=== PATIENT | male | born 1945 | race Caucasian/White ===

== ENCOUNTER 2017-10-16 15:13 | Inpatient (IN) ==
[2017-10-16] MEDS ORDERED: Melatonin 3 MG TABLET PO PRN (20:23)
[2017-10-16] MEDS ORDERED: Metoprolol XL (24 HR) Succ 50 MG TAB.ER.24H PO PRN (20:23)
[2017-10-16] MEDS ORDERED: Ipratropium/Albuterol Neb 3 ML IH PRN (20:25)
[2017-10-16] MEDS ORDERED: Naloxone 0.4 MG/ML INJ IVP PRN (20:26)
[2017-10-16] MEDS ORDERED: *HR* Morphine 2 MG/ML SYRINGE IVP PRN ×2 (20:28)
--- NOTE | 2017-10-16 20:41 | Internal Med History&Physical ---
Date of Encounter: 10/16/17 Time of Encounter: 20:39 Assessment and Plan (1) Anemia due to acute blood loss Current visit: No Status: Acute Acute blood loss anemia likely secondary to upper GI bleed, BUN is elevated and the patient showing dark stools in the colostomy bag Transfuse a second unit of blood, monitor CBC, IV fluids, Protonix drip, nothing by mouth Consult surgery Protonix for GI prophylaxis and sequential compression devices for DVT prophylaxis. The patient will be admitted as inpatient, expected to stay [facility] midnights. Full code. Time spent on this admission 40 minutes High risk due to GI bleed (2) Upper GI bleed Current visit: No Status: Acute (3) Cerebral palsy Current visit: Yes Status: Acute Qualifiers: Cerebral palsy type: unspecified type Qualified Code(s): G80.9 - Cerebral palsy, unspecified (4) Colostomy care Current visit: Yes Status: Acute (5) COPD (chronic obstructive pulmonary disease) Current visit: No Status: Chronic May use inhalers/donuts as needed Qualifiers: COPD type: unspecified COPD Qualified Code(s): J44.9 - Chronic obstructive pulmonary disease, unspecified (6) BPH (benign prostatic hyperplasia) Current visit: Yes Status: Acute Continue Flomax, may hold if blood pressure drops Qualifiers: Lower urinary tract symptom detail: unspecified Qualified Code(s): N40.1 - Benign prostatic hyperplasia with lower urinary tract symptoms Internal Medicine - H&P: HPI Chief complaint: Abdominal pain and dark stools Admitted From: Emergency Dept History of present illness: Mr. Gonsalez is a 72 year old male with a past medical history of cerebral palsy, prior small bowel obstruction, colostomy, who was transferred from [facility] as his hemoglobin was found to be 7 from a baseline of 10. Family says the patient has been having really dark stools since yesterday. Potassium is 4.6 BUN 32 that has increased from a baseline of 18. Hemoccult is positive. Patient was given 1 unit of blood at [facility] and was started on a Protonix drip. Was tachycardic with a heart rate of 110. Has also a CT scan that showed a small parastomal hernia with no other acute findings. Patient is alert and oriented in person only, history was taken from family. He appears to be in no acute distress. INR is 1.2, no history of NSAIDs or other blood thinners Past Med Surg Social Fam HX - Past Medical History Medical history: asthma, COPD (Not oxygen dependent), GERD, kidney stones, other (Influenza A, asthma, nephrolithiasis, anxiety, cerebral palsy, small bowel obstruction status post colostomy, BPH, impaired fasting glucose, hypertension) Psychiatric history: anxiety, depression - Past Surgical History Surgical History: cholecystectomy, colostomy - Social History Smoking Status: Never smoker Smokeless Tobacco Status: No Alcohol use: none Drug use: none - Family History Sister Adopted: No Family Member Ethnicity: Non- Living Status: Still Living Hx Family Cardiac Disorders: Yes Hx Family Respiratory Disorders: Yes Hx Family Cancer: No Hx Family GI Disorders: No Hx Family Endocrine Disorder: Yes (DM) Hx Family Neuromuscular Disorders: No Hx Family Neurologic Disorders: No Hx Family HEENT Disorders: No Hx Family Autoimmune Disorders: No - Additional Family History Additional family history: Sister with CABG COPD and diabetes Internal Medicine - H&P: Meds Acetaminophen [Non-Aspirin] 325 mg PO Q6H PRN 08/03/16 [History] Budesonide [Pulmicort] 0.5 mg IH BID PRN 08/03/16 [History] Cyanocobalamin (B-12) [Vitamin B12] 1,000 mcg PO DAILY 08/03/16 [History] Fluticasone Propionate [Flovent Diskus] 50 mcg IH DAILY 08/03/16 [History] HYDROcodone/Acet 5/325 mg [[place] 5-325 mg] 1 tab PO Q6H PRN 08/03/16 [History] HydrOXYzine 10 mg PO TID PRN 08/03/16 [History] Montelukast [Singulair] 10 mg PO DAILY 08/03/16 [History] Nystatin Cream [Mycostatin Cream] 1 appl TP BID PRN 08/03/16 [History] Ondansetron [Zuplenz] 4 mg PO Q8H PRN 08/03/16 [History] Sertraline [Zoloft] 25 mg PO DAILY 08/03/16 [History] Omeprazole [PriLOSEC] 40 mg PO DAILY #14 cap 01/05/17 [Rx] Tamsulosin [Flomax] 0.8 mg PO DAILY #60 capsule 01/05/17 [Rx] Albuterol Sulfate 2.5 mg IH Q4H PRN 09/08/17 [History] Ferrous Sulfate [Iron] 325 mg PO DAILY 09/08/17 [History] Melatonin [Melatin] 3 mg PO HS PRN 09/08/17 [History] Metoprolol XL (24 HR) Succ [Toprol Xl] 25 mg PO DAILY PRN 09/08/17 [History] Multivit-Min/FA/Lycopen/Lutein [Adults 50+ Multivitamin Tablet] 1 each PO DAILY 09/08/17 [History] Ranitidine HCl [Acid Swing Tender] 150 mg PO BID 09/08/17 [History] Albuterol Sulfate [Albuterol Inhaler] 2 puff IH Q4HR PRN 10/16/17 [History] Ondansetron ODT [Zofran ODT] 4 mg SL Q6HR PRN 10/16/17 [History] 3 Allergy/AdvReac Type Severity Reaction Status Date / Time Sulfa (Sulfonamide Allergy Hives Verified 10/16/17 10:38 Antibiotics) All Systems PM: A 10-system review of systems was performed and is negative for pertinent findings except as documented above in the HPI. Review of systems: Unable to be completed due to the patient's mental status - Constitutional Vitals: Pulse Resp BP Pulse Ox 97 16 123/82 95 10/16/17 18:15 10/16/17 18:15 10/16/17 18:15 10/16/17 18:15 General appearance: Present: A&O X 0 - Head Head exam: Present: atraumatic, normocephalic - Eye Eye exam: Present: PERRL, conjuntiva pink, sclera anicteric Pupils: Present: PERRL - Neck Neck exam general surgery: Present: supple, trachea midline. Absent: lymphadenopathy - Respiratory Respiratory exam: Present: decreased breath sounds, CTAB. Absent: accessory muscle use, rales, rhonchi, wheezes - Cardiovascular Cardiovascular exam: Present: RRR, +S1, +S2. Absent: diastolic murmur, gallop, rubs, systolic murmur - GI/Abdominal GI/Abdominal exam: Present: distended (Colostomy bag in place, dark fecal material), normal bowel sounds, soft, no peritoneal signs. Absent: tenderness - Extremities Exam Extremities exam: Present: warm, radial pulses palpable and symmetrical. Absent : calf tenderness, cyanotic, pedal edema - Neurological Exam Neurological exam: Present: CN II-XII intact, no focal deficits. Absent: oriented X3, pronater drift, facial droop, speech deficit - Skin Skin exam: Present: dry, intact Additional comments: Deformed lower extremities
[2017-10-16] MEDS ORDERED: 0.9 % Sodium Chloride 250 ML ONE (23:41)
[2017-10-16] MEDS: 0.9 % Sodium Chloride 1,000 ML IVC SCH (23:44)
[2017-10-17] MEDS: Pantoprazole 80 MG in 0.9 % Sodium Chloride 250 ML IVC SCH ×3 (00:36→21:40)
[2017-10-17 05:43] LABS: Hematocrit 28.1 % (37.5-50.1); Hemoglobin 8.9 g/dL (12.9-16.9); Mean Corpuscular HGB Conc 31.7 g/dL (31.6-35.5); Mean Corpuscular Hemoglobin 27.6 pg (28.0-33.3); Mean Corpuscular Volume 87.3 fL (83.0-100.0); Mean Platelet Volume 9.5 fL (9.4-12.4); Platelet Count 185 K/mcL (140-400); Red Blood Count 3.22 M/mcL (4.19-5.50); Red Cell Distribution Width 14.9 % (11.5-14.5)
[2017-10-17 05:47] LABS: BUN/Creatinine Ratio 41 (6-26); Blood Urea Nitrogen 28 mg/dL (8-23); Calcium 8.2 mg/dL (8.6-10.3); Carbon Dioxide 21 mEq/L (23-29); Chloride 116 mEq/L (98-107); Glucose 77 mg/dL (70-105); Magnesium 1.9 mg/dL (1.6-2.6); Osmolality,Calculated 298 (280-300); Potassium 3.9 mEq/L (3.5-5.1); Sodium 142 mEq/L (136-145); eGFR For African Americans > 60 (> 60); eGFR For Non-African Americans > 60 (> 60)
[2017-10-17] MEDS: 0.9 % Sodium Chloride 1,000 ML IVC SCH ×2 (10:58→21:39)
[2017-10-17] MEDS: Ondansetron 4 MG/2 ML VIAL IVP PRN (13:36)
--- NOTE | 2017-10-17 15:55 | Internal Med Progress Note ---
Date of Encounter: 10/17/17 Time of Encounter: 15:10 - Assessment and plan (1) Anemia due to blood loss, acute Current Visit: Yes Status: Acute Assessment and plan: s/p 2 unit PRBC transfusion Repeat H&H within acceptable range continue protonix gtt surgery evaluation requested (2) Upper GI bleed Current Visit: Yes Status: Acute Assessment and plan: as listed above (3) BPH (benign prostatic hyperplasia) Current Visit: Yes Status: Chronic Assessment and plan: continue Tamsulosin Qualifiers: Lower urinary tract symptom detail: unspecified Qualified Code(s): N40.1 - Benign prostatic hyperplasia with lower urinary tract symptoms (4) Cerebral palsy Current Visit: Yes Status: Chronic Qualifiers: Cerebral palsy type: unspecified type Qualified Code(s): G80.9 - Cerebral palsy, unspecified (5) Colostomy care Current Visit: Yes Status: Chronic (6) DVT prophylaxis Current Visit: Yes Status: Acute Assessment and plan: SCD (7) Hypertension Current Visit: Yes Status: Chronic Assessment and plan: started home medications will closely monitor BP Qualifiers: Hypertension type: essential hypertension Qualified Code(s): I10 - Essential (primary) hypertension - Subjective Interval history: Patient seen and examined with family present at bedside. Pt resting in bed and denies any discomfort. As per family present at bedside, pt is AAO x 0 at baseline but communicates well. His clinical condition is improved from previous day. S/P 2units PRBC transfusion(first unit given at [facility], second unit upon arrival to [facility]) Repeat H&H within acceptable range Surgery evaluation requested for possible EGD - Constitutional Vitals: Temp Pulse Resp BP Pulse Ox 98.2 F 119 16 139/81 94 10/17/17 12:02 10/17/17 12:02 10/17/17 12:02 10/17/17 12:02 10/17/17 12:02 General appearance: Present: A&O X 0, no acute distress - Head Head exam: Present: atraumatic, normocephalic - Eye Eye exam: Present: conjuntiva pink, sclera anicteric - Respiratory Respiratory exam: Absent: respiratory distress, wheezes - Cardiovascular Cardiovascular exam: Present: +S1, +S2, tachycardia - GI/Abdominal GI/Abdominal exam: Present: normal bowel sounds, soft, no peritoneal signs. Absent: distended, tenderness Additional comments: Colostomy bag in place, dark fecal material - Extremities Exam Extremities exam: Present: warm, radial pulses palpable and symmetrical. Absent : pedal edema (contracted b/l LE) Internal Medicine: Result - Labs CBC & Chem 7: 10/17/17 04:55 10/17/17 04:55 Labs: Short CBC 10/17/17 Range/Units 04:55 WBC 4.4 (4.3-11.1) K/mcL Hgb 8.9 L D (12.9-16.9) g/dL Hct 28.1 L (37.5-50.1) % Plt Count 185 (140-400) K/mcL BMP 10/17/17 04:55 Sodium 142 Potassium 3.9 Chloride 116 H Carbon Dioxide 21 L BUN 28 H Creatinine 0.69 L Glucose 77 Calcium 8.2 L Consult Discharge Plan - Plan Referrals: NONE,PCP [Primary Care Provider] -
--- NOTE | 2017-10-17 16:31 | General Surgery Consult Note ---
<Beatriz Haque - Last Filed: 10/17/17 16:18> Date of Encounter: 10/17/17 Time of Encounter: 08:15 Assessment and Plan (1) Anemia due to blood loss, acute Current Visit: Yes Status: Acute 2 days dark stool in colostomy bag. Transferred from [facility] due to hemoglobin 7 Concern for G.I. bleed 2 units of PRBC given Hgb 8.9 BUN/Cr 41 WBC WNL afebrile, stable EGD/colonoscopy tomorrow Bowel prep ordered. If patient is not tolerate oral bowel prep then it will have to be given through nasogastric tube NPO monitor for hemorrhaging (2) Upper GI bleed Current Visit: Yes Status: Acute endoscopy tomorrow (3) Colostomy care Current Visit: Yes Status: Chronic dark stool in colostomy bag (4) Cerebral palsy Current Visit: Yes Status: Chronic Qualifiers: Cerebral palsy type: unspecified type Qualified Code(s): G80.9 - Cerebral palsy, unspecified History of Present Illness Consult date: 10/17/17 Reason for consult: other (GI bleed) History of present illness: Mr. Gonsalez is a 72yo male with a past medical history of cerebral palsy, prior small bowel obstruction, and colostomy bag placed and part of colon resected in 1988. He was transferred from [facility] due to a hemoglobin of 7 (baseline 10). Family is alongside the patient upon exam. Family stated that the patient started to have dark stools and has colostomy bag [address] abd/pelvis showed small peristomal hernia without obstruction and no acute process in the abdomen and pelvis. [facility] gave the patient 1 unit of blood and he was started on a protonix drip and was transferred here. He has not been on blood thinners or NSAIDS. Past Med Surg Social Fam HX - Past Medical History Medical history: asthma, COPD (Not oxygen dependent), GERD, kidney stones, other (Influenza A, asthma, nephrolithiasis, anxiety, cerebral palsy, small bowel obstruction status post colostomy, BPH, impaired fasting glucose, hypertension) Psychiatric history: anxiety, depression - Past Surgical History Surgical History: cholecystectomy, colostomy - Social History Smoking Status: Never smoker Smokeless Tobacco Status: No Alcohol use: none Drug use: none - Family History Sister Adopted: No Family Member Ethnicity: Non- Living Status: Still Living Hx Family Cardiac Disorders: Yes Hx Family Respiratory Disorders: Yes Hx Family Cancer: No Hx Family GI Disorders: No Hx Family Endocrine Disorder: Yes (DM) Hx Family Neuromuscular Disorders: No Hx Family Neurologic Disorders: No Hx Family HEENT Disorders: No Hx Family Autoimmune Disorders: No Medications and Allergies Acetaminophen [Non-Aspirin] 325 mg PO Q6H PRN 08/03/16 [History] Budesonide [Pulmicort] 0.5 mg IH BID PRN 08/03/16 [History] Cyanocobalamin (B-12) [Vitamin B12] 1,000 mcg PO DAILY 08/03/16 [History] Fluticasone Propionate [Flovent Diskus] 50 mcg IH DAILY 08/03/16 [History] HYDROcodone/Acet 5/325 mg [[place] 5-325 mg] 1 tab PO Q6H PRN 08/03/16 [History] HydrOXYzine 10 mg PO TID PRN 08/03/16 [History] Montelukast [Singulair] 10 mg PO DAILY 08/03/16 [History] Nystatin Cream [Mycostatin Cream] 1 appl TP BID PRN 08/03/16 [History] Ondansetron [Zuplenz] 4 mg PO Q8H PRN 08/03/16 [History] Sertraline [Zoloft] 25 mg PO DAILY 08/03/16 [History] Omeprazole [PriLOSEC] 40 mg PO DAILY #14 cap 01/05/17 [Rx] Tamsulosin [Flomax] 0.8 mg PO DAILY #60 capsule 01/05/17 [Rx] Albuterol Sulfate 2.5 mg IH Q4H PRN 09/08/17 [History] Ferrous Sulfate [Iron] 325 mg PO DAILY 09/08/17 [History] Melatonin [Melatin] 3 mg PO HS PRN 09/08/17 [History] Metoprolol XL (24 HR) Succ [Toprol Xl] 25 mg PO DAILY PRN 09/08/17 [History] Multivit-Min/FA/Lycopen/Lutein [Adults 50+ Multivitamin Tablet] 1 each PO DAILY 09/08/17 [History] Ranitidine HCl [Acid Wind Technician] 150 mg PO BID 09/08/17 [History] Albuterol Sulfate [Albuterol Inhaler] 2 puff IH Q4HR PRN 10/16/17 [History] Ondansetron ODT [Zofran ODT] 4 mg SL Q6HR PRN 10/16/17 [History] 3 Allergy/AdvReac Type Severity Reaction Status Date / Time Sulfa (Sulfonamide Allergy Hives Verified 10/16/17 10:38 Antibiotics) Review of Systems ROS unobtainable: other (the patient was unable to communicate ROS due to cerebral palsy) All systems PM: A 10-system review of systems was performed and is negative for pertinent findings except as documented above in the HPI. General Surgery Exam Initial Vital Signs Pulse Resp BP Pulse Ox 97 16 123/82 95 10/16/17 18:15 10/16/17 18:15 10/16/17 18:15 10/16/17 18:15 - General physical appearance well developed, well nourished, no distress - Eyes normal ocular movement. negative: icteric - Respiratory normal expansion, clear to percussion - Cardiovascular Cardiovascular exam: Present: RRR - Abdomen Abdomen general surgery: Present: bowel sounds present, soft, non tender Exam Initial Vital Signs Pulse Resp BP Pulse Ox 97 16 123/82 95 10/16/17 18:15 10/16/17 18:15 10/16/17 18:15 10/16/17 18:15 Results - Labs 10/17/17 04:55 10/17/17 04:55 Abnormal lab results RBC 3.22 M/mcL (4.19-5.50) L 10/17/17 04:55 Hgb 8.9 g/dL (12.9-16.9) L D 10/17/17 04:55 Hct 28.1 % (37.5-50.1) L 10/17/17 04:55 MCH 27.6 pg (28.0-33.3) L 10/17/17 04:55 RDW 14.9 % (11.5-14.5) H 10/17/17 04:55 Chloride 116 mEq/L (98-107) H 10/17/17 04:55 Carbon Dioxide 21 mEq/L (23-29) L 10/17/17 04:55 BUN 28 mg/dL (8-23) H 10/17/17 04:55 Creatinine 0.69 mg/dL (0.70-1.30) L 10/17/17 04:55 BUN/Creatinine Ratio 41 (6-26) H 10/17/17 04:55 Calcium 8.2 mg/dL (8.6-10.3) L 10/17/17 04:55 Diabetes panel 10/17/17 Range/Units 04:55 Sodium 142 (136-145) mEq/L Potassium 3.9 (3.5-5.1) mEq/L Chloride 116 H (98-107) mEq/L Carbon Dioxide 21 L (23-29) mEq/L BUN 28 H (8-23) mg/dL Creatinine 0.69 L (0.70-1.30) mg/dL Glucose 77 (70-105) mg/dL Calcium 8.2 L (8.6-10.3) mg/dL Calcium panel 10/17/17 Range/Units 04:55 Calcium 8.2 L (8.6-10.3) mg/dL Pituitary panel 10/17/17 Range/Units 04:55 Sodium 142 (136-145) mEq/L Potassium 3.9 (3.5-5.1) mEq/L Chloride 116 H (98-107) mEq/L Carbon Dioxide 21 L (23-29) mEq/L BUN 28 H (8-23) mg/dL Creatinine 0.69 L (0.70-1.30) mg/dL Glucose 77 (70-105) mg/dL Calcium 8.2 L (8.6-10.3) mg/dL Adrenal panel 10/17/17 Range/Units 04:55 Sodium 142 (136-145) mEq/L Potassium 3.9 (3.5-5.1) mEq/L Chloride 116 H (98-107) mEq/L Carbon Dioxide 21 L (23-29) mEq/L BUN 28 H (8-23) mg/dL Creatinine 0.69 L (0.70-1.30) mg/dL Glucose 77 (70-105) mg/dL Calcium 8.2 L (8.6-10.3) mg/dL All other labs normal. Consult Discharge Plan - Plan Referrals: NONE,PCP [Primary Care Provider] - <Taye Markham - Last Filed: 10/17/17 18:05> Date of Encounter: 10/17/17 Review of Systems All systems PM: A 10-system review of systems was performed and is negative for pertinent findings except as documented above in the HPI. General Surgery Exam Initial Vital Signs Pulse Resp BP Pulse Ox 97 16 123/82 95 10/16/17 18:15 10/16/17 18:15 10/16/17 18:15 10/16/17 18:15 Exam Initial Vital Signs Pulse Resp BP Pulse Ox 97 16 123/82 95 10/16/17 18:15 10/16/17 18:15 10/16/17 18:15 10/16/17 18:15 Results - Labs 10/17/17 04:55 10/17/17 04:55 Abnormal lab results RBC 3.22 M/mcL (4.19-5.50) L 10/17/17 04:55 Hgb 8.9 g/dL (12.9-16.9) L D 10/17/17 04:55 Hct 28.1 % (37.5-50.1) L 10/17/17 04:55 MCH 27.6 pg (28.0-33.3) L 10/17/17 04:55 RDW 14.9 % (11.5-14.5) H 10/17/17 04:55 Chloride 116 mEq/L (98-107) H 10/17/17 04:55 Carbon Dioxide 21 mEq/L (23-29) L 10/17/17 04:55 BUN 28 mg/dL (8-23) H 10/17/17 04:55 Creatinine 0.69 mg/dL (0.70-1.30) L 10/17/17 04:55 BUN/Creatinine Ratio 41 (6-26) H 10/17/17 04:55 Calcium 8.2 mg/dL (8.6-10.3) L 10/17/17 04:55 Diabetes panel 10/17/17 Range/Units 04:55 Sodium 142 (136-145) mEq/L Potassium 3.9 (3.5-5.1) mEq/L Chloride 116 H (98-107) mEq/L Carbon Dioxide 21 L (23-29) mEq/L BUN 28 H (8-23) mg/dL Creatinine 0.69 L (0.70-1.30) mg/dL Glucose 77 (70-105) mg/dL Calcium 8.2 L (8.6-10.3) mg/dL Calcium panel 01/07/18 Range/Units 04:55 Calcium 8.2 L (8.6-10.3) mg/dL Pituitary panel 10/17/17 Range/Units 04:55 Sodium 142 (136-145) mEq/L Potassium 3.9 (3.5-5.1) mEq/L Chloride 116 H (98-107) mEq/L Carbon Dioxide 21 L (23-29) mEq/L BUN 28 H (8-23) mg/dL Creatinine 0.69 L (0.70-1.30) mg/dL Glucose 77 (70-105) mg/dL Calcium 8.2 L (8.6-10.3) mg/dL Adrenal panel 10/17/17 Range/Units 04:55 Sodium 142 (136-145) mEq/L Potassium 3.9 (3.5-5.1) mEq/L Chloride 116 H (98-107) mEq/L Carbon Dioxide 21 L (23-29) mEq/L BUN 28 H (8-23) mg/dL Creatinine 0.69 L (0.70-1.30) mg/dL Glucose 77 (70-105) mg/dL Calcium 8.2 L (8.6-10.3) mg/dL All other labs normal. - Attending Attestation I examined this patient and my medical decision-making was reviewed with the Resident Physician. I agree with the documented findings, disposition and treatment plan as described except to the extent set forth below. The patient is seen and evaluated on morning rounds with the resident. He appears to have anemia with guaiac positive stool. The family members also report darkening of his colostomy output. He did have colon resection in the remote past of unknown type. His colostomy is on the right side of the abdomen. He has multiple entry midline incision healed by secondary intention. We will plan EGD and colonoscopy with the assistance of Mac anesthesia tomorrow. Proceed with bowel prep. Taye Markham MD FACS
[2017-10-17] MEDS ORDERED: Polyethylene Glycol 3350 255 GM POWDER PO ONE (17:00)
[2017-10-17] MEDS: Metoprolol XL (24 HR) Succ 50 MG TAB.ER.24H PO SCH (17:21)
[2017-10-18] MEDS: Ondansetron 4 MG/2 ML VIAL IVP PRN ×3 (02:02→21:09)
[2017-10-18 03:36] LABS: Basophils % 0.4 %; Eosinophils # 0.1 K/mcL (0.0-0.6); Eosinophils % 2.5 %; Hematocrit 24.5 % (37.5-50.1); Hemoglobin 7.9 g/dL (12.9-16.9); Immature Granulocytes % 0.6 % (0-4); Immature Platelets 1.6 % (1.1-6.1); Lymphocytes # 1.2 K/mcL (0.6-4.6); Lymphocytes % 24.2 %; Mean Corpuscular HGB Conc 32.2 g/dL (31.6-35.5); Mean Corpuscular Hemoglobin 27.6 pg (28.0-33.3); Mean Corpuscular Volume 85.7 fL (83.0-100.0); Mean Platelet Volume 9.3 fL (9.4-12.4); Monocytes # 0.3 K/mcL (0.0-1.3); Monocytes % 6.3 %; Neutrophils # 3.1 K/mcL (1.6-8.9); Nucleated Red Blood Cells 0.4 /100 WBC (0); Platelet Count 210 K/mcL (140-400); Red Blood Count 2.86 M/mcL (4.19-5.50); Red Cell Distribution Width 15.1 % (11.5-14.5)
[2017-10-18 03:57] LABS: BUN/Creatinine Ratio 21 (6-26); Blood Urea Nitrogen 13 mg/dL (8-23); Calcium 8.1 mg/dL (8.6-10.3); Carbon Dioxide 21 mEq/L (23-29); Chloride 116 mEq/L (98-107); Glucose 88 mg/dL (70-105); Magnesium 1.7 mg/dL (1.6-2.6); Osmolality,Calculated 292 (280-300); Phosphorous 2.6 mg/dL (2.7-4.5); Potassium 3.5 mEq/L (3.5-5.1); Sodium 141 mEq/L (136-145); eGFR For African Americans > 60 (> 60); eGFR For Non-African Americans > 60 (> 60)
[2017-10-18] MEDS: 0.9 % Sodium Chloride 1,000 ML IVC SCH ×2 (07:46→21:10)
[2017-10-18] MEDS: Pantoprazole 80 MG in 0.9 % Sodium Chloride 250 ML IVC SCH (07:46)
[2017-10-18] MEDS: Metoprolol XL (24 HR) Succ 50 MG TAB.ER.24H PO SCH (07:47)
--- NOTE | 2017-10-18 08:13 | General Surgery Progress Note ---
<Beatriz Haque - Last Filed: 10/18/17 08:09> Date of Encounter: 10/18/17 Time of Encounter: 06:50 - Assessment and Plan (1) Anemia due to blood loss, acute Current Visit: Yes Status: Acute 2 days dark stool in colostomy bag. Transferred from [facility] due to hemoglobin 7 Concern for G.I. bleed 2 units of PRBC given Hgb 7.9 BUN/Cr 21 WBC WNL afebrile, blood pressure stable Successful bowel prep last night EGD/colonoscopy today by Dr. Markham NPO monitor for hemorrhaging (2) Upper GI bleed Current Visit: Yes Status: Acute Endoscopy scheduled for today (3) Colostomy care Current Visit: Yes Status: Chronic Has a colostomy bag on right side of abdomen. Bag was clear on inspection post bowel prep (4) Cerebral palsy Current Visit: Yes Status: Chronic Has cerebral palsy Qualifiers: Cerebral palsy type: unspecified type Qualified Code(s): G80.9 - Cerebral palsy, unspecified Subjective Patient reports: no new complaints, afebrile Narrative: The patient's family and nursing reported that the patient tolerated the bowel prep but did not have to consume full amount since he had clear stools prior to finishing. The patient has no other complaints. Family was pleased that the patient is going to proceed with the endoscopy today. There were no other events over night according to his nurse. Objective Vital Signs - Last 8 Hours Temp Pulse Resp BP Pulse Ox 10/18/17 07:00 100 16 100/69 97 10/18/17 05:20 98.1 F 103 20 121/83 96 Intake and Output 10/17/17 10/18/17 10/18/17 23:59 07:59 15:59 Intake Total 1250 / 1250 1250 / 1250 Output Total 300 / 300 500 / 500 Balance 950 / 950 750 / 750 Intake: IV Fluids 1250 / 1250 1250 / 1250 0.9 % Sodium Chloride 1,000 ML 1000 / 1000 1000 / 1000 @ 100 mls/hr IVC .Q10H [facility] Rx#: [id number] Protonix 80 MG In 0.9 % Sodium 250 / 250 250 / 250 Chloride 250 ML @ 25 mls/hr IVC .Q10H [facility] Rx#:[id number] Oral 0 / 0 0 / 0 Output: Stool 300 / 300 500 / 500 Other: Stool Size Moderate Moderate Stool Consistency liquid liquid Stool Color Green Yellow # Voids 1 0 # Urine Diapers 1 Weight 66.5 kg Patient Weight 10/18/17 23:59 Weight 66.5 kg - General physical appearance well developed, well nourished, no distress - ENT normal nares - Respiratory normal expansion, normal respiratory effort, clear to auscultation - Cardiovascular Cardiovascular exam: Present: RRR - Abdomen Abdomen: Present: bowel sounds present, soft, non tender - Labs 10/18/17 02:35 10/18/17 02:35 Diabetes panel 10/18/17 Range/Units 02:35 Sodium 141 (136-145) mEq/L Potassium 3.5 (3.5-5.1) mEq/L Chloride 116 H (98-107) mEq/L Carbon Dioxide 21 L (23-29) mEq/L BUN 13 (8-23) mg/dL Creatinine 0.63 L (0.70-1.30) mg/dL Glucose 88 (70-105) mg/dL Calcium 8.1 L (8.6-10.3) mg/dL Calcium panel 10/18/17 Range/Units 02:35 Calcium 8.1 L (8.6-10.3) mg/dL Phosphorus 2.6 L (2.7-4.5) mg/dL Pituitary panel 10/18/17 Range/Units 02:35 Sodium 141 (136-145) mEq/L Potassium 3.5 (3.5-5.1) mEq/L Chloride 116 H (98-107) mEq/L Carbon Dioxide 21 L (23-29) mEq/L BUN 13 (8-23) mg/dL Creatinine 0.63 L (0.70-1.30) mg/dL Glucose 88 (70-105) mg/dL Calcium 8.1 L (8.6-10.3) mg/dL Adrenal panel 10/18/17 Range/Units 02:35 Sodium 141 (136-145) mEq/L Potassium 3.5 (3.5-5.1) mEq/L Chloride 116 H (98-107) mEq/L Carbon Dioxide 21 L (23-29) mEq/L BUN 13 (8-23) mg/dL Creatinine 0.63 L (0.70-1.30) mg/dL Glucose 88 (70-105) mg/dL Calcium 8.1 L (8.6-10.3) mg/dL Consult Discharge Plan - Plan Referrals: NONE,PCP [Primary Care Provider] - <ShahrzadTaye Arias - Last Filed: 10/19/17 08:50> Date of Encounter: 10/19/17 Objective Vital Signs - Last 8 Hours Temp Pulse Resp BP Pulse Ox 10/19/17 07:00 80 14 124/79 97 10/19/17 05:55 98.1 F 102 16 124/79 96 Intake and Output 10/18/17 10/19/17 10/19/17 23:59 07:59 15:59 Intake Total 1000 / 1000 1000 / 1000 Output Total 400 / 400 400 / 400 Balance 600 / 600 600 / 600 Intake: IV Fluids 1000 / 1000 1000 / 1000 0.9 % Sodium Chloride 1,000 ML 1000 / 1000 1000 / 1000 @ 100 mls/hr IVC .Q10H [facility] Rx#: [id number] Oral 0 / 0 0 / 0 Output: Stool 400 / 400 400 / 400 Other: Stool Size Large Stool Consistency liquid formed Stool Color Black # Voids 1 0 # Urine Diapers 1 1 Weight 65.5 kg Patient Weight 10/19/17 23:59 Weight 65.5 kg - Labs 10/19/17 03:53 10/19/17 03:53 Diabetes panel 10/19/17 Range/Units 03:53 Sodium 143 (136-145) mEq/L Potassium 3.4 L (3.5-5.1) mEq/L Chloride 119 H (98-107) mEq/L Carbon Dioxide 21 L (23-29) mEq/L BUN 16 (8-23) mg/dL Creatinine 0.57 L (0.70-1.30) mg/dL Glucose 88 (70-105) mg/dL Calcium 7.9 L (8.6-10.3) mg/dL Calcium panel 10/19/17 Range/Units 03:53 Calcium 7.9 L (8.6-10.3) mg/dL Phosphorus 2.6 L (2.7-4.5) mg/dL Pituitary panel 10/19/17 Range/Units 03:53 Sodium 143 (136-145) mEq/L Potassium 3.4 L (3.5-5.1) mEq/L Chloride 119 H (98-107) mEq/L Carbon Dioxide 21 L (23-29) mEq/L BUN 16 (8-23) mg/dL Creatinine 0.57 L (0.70-1.30) mg/dL Glucose 88 (70-105) mg/dL Calcium 7.9 L (8.6-10.3) mg/dL Adrenal panel 10/19/17 Range/Units 03:53 Sodium 143 (136-145) mEq/L Potassium 3.4 L (3.5-5.1) mEq/L Chloride 119 H (98-107) mEq/L Carbon Dioxide 21 L (23-29) mEq/L BUN 16 (8-23) mg/dL Creatinine 0.57 L (0.70-1.30) mg/dL Glucose 88 (70-105) mg/dL Calcium 7.9 L (8.6-10.3) mg/dL - Attending Attestation I examined this patient and my medical decision-making was reviewed with the Resident Physician. I agree with the documented findings, disposition and treatment plan as described except to the extent set forth below. The patient is seen and evaluated with the resident. The patient has evidence of GI bleed. We will plan EGD and endoscopy through the ostomy to try and identify bleeding source. We will proceed later today. Taye Markham MD FACS
[2017-10-18] MEDS ORDERED: Lidocaine -MPF 2% 2 ML VIAL ONE (08:35)
[2017-10-18] MEDS ORDERED: Propofol 500 MG/50 ML INFUS..BTL ONE (08:35)
--- NOTE | 2017-10-18 08:49 | Anesthesia Evaluation PreOp ---
Date of Encounter: 10/18/17 Time of Encounter: 08:49 - Past History Planned Operation: endoscopy, GI bleed recieved 2 units packed cells Cardiac History: HTN Pulmonary History: Asthma, COPD MENT[employer] HE[employer] PROFESSIONAL History: Other (CP, anxiety depression) Other Medical History: Renal (kidney stones,), Other (colostomy d/t small bowel obstruction, BPH, insomnia,) Alcohol Use: none Drug use: none Medications and Allergies Acetaminophen [Non-Aspirin] 325 mg PO Q6H PRN 08/03/16 [History] Budesonide [Pulmicort] 0.5 mg IH BID PRN 08/03/16 [History] Cyanocobalamin (B-12) [Vitamin B12] 1,000 mcg PO DAILY 08/03/16 [History] Fluticasone Propionate [Flovent Diskus] 50 mcg IH DAILY 08/03/16 [History] HYDROcodone/Acet 5/325 mg [[place] 5-325 mg] 1 tab PO Q6H PRN 08/03/16 [History] HydrOXYzine 10 mg PO TID PRN 08/03/16 [History] Montelukast [Singulair] 10 mg PO DAILY 08/03/16 [History] Nystatin Cream [Mycostatin Cream] 1 appl TP BID PRN 08/03/16 [History] Ondansetron [Zuplenz] 4 mg PO Q8H PRN 08/03/16 [History] Sertraline [Zoloft] 25 mg PO DAILY 08/03/16 [History] Omeprazole [PriLOSEC] 40 mg PO DAILY #14 cap 01/05/17 [Rx] Tamsulosin [Flomax] 0.8 mg PO DAILY #60 capsule 01/05/17 [Rx] Albuterol Sulfate 2.5 mg IH Q4H PRN 09/08/17 [History] Ferrous Sulfate [Iron] 325 mg PO DAILY 09/08/17 [History] Melatonin [Melatin] 3 mg PO HS PRN 09/08/17 [History] Metoprolol XL (24 HR) Succ [Toprol Xl] 25 mg PO DAILY PRN 09/08/17 [History] Multivit-Min/FA/Lycopen/Lutein [Adults 50+ Multivitamin Tablet] 1 each PO DAILY 09/08/17 [History] Ranitidine HCl [Acid Sports Reporter] 150 mg PO BID 09/08/17 [History] Albuterol Sulfate [Albuterol Inhaler] 2 puff IH Q4HR PRN 10/16/17 [History] Ondansetron ODT [Zofran ODT] 4 mg SL Q6HR PRN 10/16/17 [History] 3 Allergy/AdvReac Type Severity Reaction Status Date / Time Sulfa (Sulfonamide Allergy Hives Verified 10/16/17 10:38 Antibiotics) Anesthesia Results - Labs 10/18/17 02:35 10/18/17 02:35 Anesthesia Exam - HEENT Pupil (Motor): Pupils equal Mallampati: III Teeth: Missing, Poor dentition Oral Opening: Greater than 3 - Cardiac Rhythm: Regular Murmur: None - Pulmonary Breath Sounds: bilateral Rhonchi (scattered) Respiratory Effort: Symmetrical Anesthesia Assess/Plan ASA Score: 3 Modified Cody Scale for Level of Consciousness: Cooperative, oriented, and tranquil Anesthetic Plan: MAC Monitoring Plan: Standard Monitors
[2017-10-18] MEDS ORDERED: Metoprolol XL (24 HR) Succ 50 MG TAB.ER.24H PO SCH (09:00)
[2017-10-18] MEDS ORDERED: Tetracaine/Benzocaine/Butamben 200MG/SPRAY (100SPY/BOT) MM ONE (09:23)
[2017-10-18] MEDS ORDERED: Simethicone 40 MG/0.6 ML MLS IR ONE (09:23)
--- NOTE | 2017-10-18 12:28 | Internal Med Progress Note ---
Date of Encounter: 10/18/17 Time of Encounter: 12:27 - Assessment and plan (1) Anemia due to blood loss, acute Current Visit: Yes Status: Acute Assessment and plan: s/p 2 unit PRBC transfusio on 10/17/17 continue protonix gtt until EGD/Colonoscopy surgery evaluation appreciated (2) Upper GI bleed Current Visit: Yes Status: Acute Assessment and plan: as listed above (3) BPH (benign prostatic hyperplasia) Current Visit: Yes Status: Chronic Assessment and plan: continue Tamsulosin Qualifiers: Lower urinary tract symptom presence: unspecified whether lower urinary tract symptoms present Qualified Code(s): N40.0 - Benign prostatic hyperplasia without lower urinary tract symptoms (4) Cerebral palsy Current Visit: Yes Status: Chronic Qualifiers: Cerebral palsy type: unspecified type Qualified Code(s): G80.9 - Cerebral palsy, unspecified (5) Colostomy care Current Visit: Yes Status: Chronic (6) DVT prophylaxis Current Visit: Yes Status: Acute Assessment and plan: SCD (7) Hypertension Current Visit: Yes Status: Chronic Assessment and plan: BP within acceptable range conitnue home medications will closely monitor BP Qualifiers: Hypertension type: essential hypertension Qualified Code(s): I10 - Essential (primary) hypertension - Subjective Interval history: Patient seen and examined at bedside. Pt resting in bed and denies any discomfort. As per family present at bedside, pt is AAO x 0 at baseline but communicates well. His clinical condition is improved from previous day. S/P 2units PRBC transfusion(first unit given at [facility], second unit upon arrival to [facility]) Surgery evaluation appreciated, tentative EGD today - Constitutional Vitals: Temp Pulse Resp BP Pulse Ox 99.2 F 103 20 139/80 98 10/18/17 08:52 10/18/17 08:52 10/18/17 08:52 10/18/17 08:52 10/18/17 08:52 General appearance: Present: A&O X 0, no acute distress - Head Head exam: Present: atraumatic, normocephalic - Eye Eye exam: Present: conjuntiva pink, sclera anicteric - Respiratory Respiratory exam: Present: CTAB. Absent: respiratory distress, wheezes - Cardiovascular Cardiovascular exam: Present: +S1, +S2, tachycardia. Absent: diastolic murmur, gallop, rubs, systolic murmur - GI/Abdominal GI/Abdominal exam: Present: normal bowel sounds, soft, no peritoneal signs. Absent: distended, tenderness - Extremities Exam Extremities exam: Present: warm, radial pulses palpable and symmetrical. Absent : calf tenderness Internal Medicine: Result - Labs CBC & Chem 7: 10/18/17 02:35 10/18/17 02:35 Labs: Short CBC 10/18/17 Range/Units 02:35 WBC 4.8 (4.3-11.1) K/mcL Hgb 7.9 L (12.9-16.9) g/dL Hct 24.5 L (37.5-50.1) % Plt Count 210 (140-400) K/mcL Neutrophils # 3.1 (1.6-8.9) K/mcL BMP 10/18/17 02:35 Sodium 141 Potassium 3.5 Chloride 116 H Carbon Dioxide 21 L BUN 13 Creatinine 0.63 L Glucose 88 Calcium 8.1 L Consult Discharge Plan - Plan Referrals: NONE,PCP [Primary Care Provider] -
[2017-10-18] MEDS: Acetaminophen 325 MG TABLET PO PRN (21:09)
[2017-10-19 04:34] LABS: Hematocrit 20.7 % (37.5-50.1); Hemoglobin 6.6 g/dL (12.9-16.9); Immature Granulocytes % 0.3 % (0-4); Lymphocytes % 28.8 %; Mean Corpuscular HGB Conc 31.9 g/dL (31.6-35.5); Mean Corpuscular Hemoglobin 27.4 pg (28.0-33.3); Mean Corpuscular Volume 85.9 fL (83.0-100.0); Mean Platelet Volume 9.4 fL (9.4-12.4); Monocytes % 6.9 %; Platelet Count 179 K/mcL (140-400); Red Blood Count 2.41 M/mcL (4.19-5.50); Red Cell Distribution Width 15.2 % (11.5-14.5); Segmented Neutrophils % 59.3 %
[2017-10-19 04:35] LABS: Basophils % 0.5 %; Eosinophils # 0.2 K/mcL (0.0-0.6); Eosinophils % 4.2 %; Lymphocytes # 1.1 K/mcL (0.6-4.6); Monocytes # 0.3 K/mcL (0.0-1.3); Neutrophils # 2.2 K/mcL (1.6-8.9)
[2017-10-19 04:52] LABS: BUN/Creatinine Ratio 28 (6-26); Blood Urea Nitrogen 16 mg/dL (8-23); Calcium 7.9 mg/dL (8.6-10.3); Carbon Dioxide 21 mEq/L (23-29); Chloride 119 mEq/L (98-107); Glucose 88 mg/dL (70-105); Magnesium 1.8 mg/dL (1.6-2.6); Osmolality,Calculated 297 (280-300); Phosphorous 2.6 mg/dL (2.7-4.5); Potassium 3.4 mEq/L (3.5-5.1); Sodium 143 mEq/L (136-145); eGFR For African Americans > 60 (> 60); eGFR For Non-African Americans > 60 (> 60)
[2017-10-19] MEDS: Metoprolol XL (24 HR) Succ 50 MG TAB.ER.24H PO SCH (07:37)
[2017-10-19] MEDS: 0.9 % Sodium Chloride 1,000 ML IVC SCH (07:39)
[2017-10-19] MEDS ORDERED: 0.9 % Sodium Chloride 250 ML ONE ×3 (08:42→14:09)
--- NOTE | 2017-10-19 09:31 | General Surgery Progress Note ---
<Figueroa Quiroz - Last Filed: 10/19/17 09:28> Date of Encounter: 10/19/17 Time of Encounter: 09:28 - Assessment and Plan (1) Anemia due to blood loss, acute Status: Acute Continues to have dark bloody stools in colostomy, day 3. Transferred from [facility] due to hemoglobin 7. No active bleed visualized on EGD. - hgb this AM 6.6, ordered 3 units of prbc - closely monitor vitals, H&H. - tachycardic this AM, ordered EKG - NPO (2) Upper GI bleed Status: Acute EGD 10/18/17 - acute hemorrhagic gastritis with clot performed by Dr. Taye Markham. No acute hemorrhage visualized. - see plan above (3) Cerebral palsy Status: Chronic has cerebral palsy Qualifiers: Cerebral palsy type: unspecified type Qualified Code(s): G80.9 - Cerebral palsy, unspecified (4) Colostomy care Status: Chronic Has a colostomy bag on right side of abdomen. Bag was clear on inspection post bowel prep Subjective Patient reports: still having pain, tolerating liquids well, afebrile Narrative: 72 yo M is less coherent today. Patient unable to answer questions directly. Hx collected from Mother. She reports the patient is "more out of it today" and she expresses concern that is looking more pale and she feels like he is declining. Objective Vital Signs - Last 8 Hours Temp Pulse Resp BP Pulse Ox 10/19/17 09:04 97.2 F L 111 14 137/73 95 10/19/17 09:00 98.1 F 107 14 124/79 97 10/19/17 07:00 80 14 124/79 97 10/19/17 05:55 98.1 F 102 16 124/79 96 Intake and Output 10/18/17 10/19/17 10/19/17 23:59 07:59 15:59 Intake Total 1000 / 1000 1000 / 1000 0 / 0 Output Total 400 / 400 400 / 400 Balance 600 / 600 600 / 600 0 / 0 Intake: IV Fluids 1000 / 1000 1000 / 1000 0.9 % Sodium Chloride 1,000 ML 1000 / 1000 1000 / 1000 @ 100 mls/hr IVC .Q10H [facility] Rx#: [id number] Oral 0 / 0 0 / 0 Blood Product 0 / 0 Rbcs Leuko Poor As-3 Ph Unit 0 / 0 [id number] Output: Stool 400 / 400 400 / 400 Other: Stool Size Large Stool Consistency liquid formed Stool Color Black # Voids 1 0 # Urine Diapers 1 1 Weight 65.5 kg Patient Weight 10/19/17 23:59 Weight 65.5 kg - General physical appearance moderate pain, chronically ill - Eyes normal ocular movement - ENT normal mucosa, no hearing loss, no congestion - Respiratory normal expansion, normal respiratory effort, clear to percussion, clear to auscultation - Cardiovascular Cardiovascular exam: Present: RRR - Abdomen Abdomen: Present: bowel sounds present, soft, non tender - Integumentary no rash, no growths, no abnormal pigmentation - Psychiatric other (Patient alert, but unable to respond to questions) - Labs 10/19/17 03:53 10/19/17 03:53 Diabetes panel 10/19/17 Range/Units 03:53 Sodium 143 (136-145) mEq/L Potassium 3.4 L (3.5-5.1) mEq/L Chloride 119 H (98-107) mEq/L Carbon Dioxide 21 L (23-29) mEq/L BUN 16 (8-23) mg/dL Creatinine 0.57 L (0.70-1.30) mg/dL Glucose 88 (70-105) mg/dL Calcium 7.9 L (8.6-10.3) mg/dL Calcium panel 10/19/17 Range/Units 03:53 Calcium 7.9 L (8.6-10.3) mg/dL Phosphorus 2.6 L (2.7-4.5) mg/dL Pituitary panel 10/19/17 Range/Units 03:53 Sodium 143 (136-145) mEq/L Potassium 3.4 L (3.5-5.1) mEq/L Chloride 119 H (98-107) mEq/L Carbon Dioxide 21 L (23-29) mEq/L BUN 16 (8-23) mg/dL Creatinine 0.57 L (0.70-1.30) mg/dL Glucose 88 (70-105) mg/dL Calcium 7.9 L (8.6-10.3) mg/dL Adrenal panel 10/19/17 Range/Units 03:53 Sodium 143 (136-145) mEq/L Potassium 3.4 L (3.5-5.1) mEq/L Chloride 119 H (98-107) mEq/L Carbon Dioxide 21 L (23-29) mEq/L BUN 16 (8-23) mg/dL Creatinine 0.57 L (0.70-1.30) mg/dL Glucose 88 (70-105) mg/dL Calcium 7.9 L (8.6-10.3) mg/dL Consult Discharge Plan - Plan Instructions: Omeprazole (By mouth), Gastrointestinal Bleeding (DC), Gastrointestinal Bleeding (GEN), Chronic Obstructive Pulmonary Disease (DC), Chronic Hypertension (DC), Anemia (GEN) Referrals: Taye Markham MD [Partnered Physician] - 11/23/17 8:55 am Agueda Suresh MD [Partnered Physician] - 10/25/17 10:15 am NONE,PCP [Primary Care Provider] - 11/23/17 8:55 am Prescriptions: Omeprazole [PriLOSEC] 40 mg PO BID #60 cap <Taye Markham - Last Filed: 10/22/17 13:08> Date of Encounter: 10/19/17 Objective - Labs 10/21/17 05:29 10/21/17 05:29 - Attending Attestation I examined this patient and my medical decision-making was reviewed with the Resident Physician. I agree with the documented findings, disposition and treatment plan as described except to the extent set forth below. The patient is seen and evaluated on morning rounds with the resident. The patient has not yet had adequate resuscitation from his acute upper GI bleed. I recommended trans-fuse 3 units packed red blood cells Taye Markham MD FACS
--- NOTE | 2017-10-19 15:16 | Internal Med Progress Note ---
Date of Encounter: 10/19/17 Time of Encounter: 08:45 - Assessment and plan (1) Anemia due to blood loss, acute Current Visit: Yes Status: Acute Assessment and plan: Patient for some reason did not receive his 2 units of blood on 10/17. Today his hemoglobin was 6.6 after having the EGD done yesterday that showed no active bleeding. At this time surgery ordered 3 units of packed red blood cells stat. These were then transfused to the patient. continue protonix gtt until EGD/Colonoscopy surgery evaluation appreciated they did an EGD which showed no active bleeding but did have a large clot that was removed from the stomach. We also ordered an EKG due to patient being tachycardic. They are keeping patient nothing by mouth. In case he needs a second EGD for active bleeding. We will closely monitor H&H today as well as tomorrow. (2) Upper GI bleed Current Visit: Yes Status: Acute Assessment and plan: as listed above (3) Cerebral palsy Current Visit: Yes Status: Chronic Qualifiers: Cerebral palsy type: unspecified type Qualified Code(s): G80.9 - Cerebral palsy, unspecified (4) Colostomy care Current Visit: Yes Status: Chronic Assessment and plan: Patient has colostomy bag on right side of abdomen. (5) BPH (benign prostatic hyperplasia) Current Visit: Yes Status: Chronic Assessment and plan: continue Tamsulosin Qualifiers: Lower urinary tract symptom presence: unspecified whether lower urinary tract symptoms present Qualified Code(s): N40.0 - Benign prostatic hyperplasia without lower urinary tract symptoms (6) DVT prophylaxis Current Visit: Yes Status: Acute Assessment and plan: SCD (7) Hypertension Current Visit: Yes Status: Chronic Assessment and plan: BP within acceptable range conitnue home medications will closely monitor BP Qualifiers: Hypertension type: essential hypertension Qualified Code(s): I10 - Essential (primary) hypertension - Subjective Interval history: Patient was lying in bed in no distress. There was blood at the colostomy bag. Family was sitting bedside and said that he is still doing well and having no other complaints. He said he has seemed a little more weak recently. He said he is not complaining of any fevers, chills, nausea, vomiting, chest pain, shortness of breath. He does not ostomy bag so there is no changes in bowel movements. Patient otherwise has no complaints. There were no overnight events. - Constitutional Vitals: Temp Pulse Resp BP Pulse Ox 97.2 F L 81 15 120/64 94 10/19/17 14:37 10/19/17 14:37 10/19/17 14:37 10/19/17 14:37 10/19/17 14:37 General appearance: Present: A&O X 0, no acute distress - Head Head exam: Present: atraumatic, normocephalic - Eye Eye exam: Present: PERRL, conjuntiva pink, sclera anicteric Pupils: Present: PERRL - Neck Neck exam general surgery: Present: supple, trachea midline. Absent: lymphadenopathy - Respiratory Respiratory exam: Present: CTAB. Absent: accessory muscle use, rales, rhonchi, wheezes - Cardiovascular Cardiovascular exam: Present: RRR, +S1, +S2. Absent: diastolic murmur, gallop, rubs, systolic murmur - GI/Abdominal GI/Abdominal exam: Present: normal bowel sounds, soft, no peritoneal signs. Absent: distended, tenderness - Extremities Exam Extremities exam: Present: warm, radial pulses palpable and symmetrical. Absent : calf tenderness, cyanotic, pedal edema - Neurological Exam Neurological exam: Present: no focal deficits. Absent: pronater drift, facial droop, speech deficit - Skin Skin exam: Present: dry, intact, pallor Internal Medicine: Result - Labs CBC & Chem 7: 10/19/17 03:53 10/19/17 03:53 Labs: Short CBC 10/19/17 Range/Units 03:53 WBC 3.8 L (4.3-11.1) K/mcL Hgb 6.6 L (12.9-16.9) g/dL Hct 20.7 L (37.5-50.1) % Plt Count 179 (140-400) K/mcL Neutrophils # 2.2 (1.6-8.9) K/mcL BMP 10/19/17 03:53 Sodium 143 Potassium 3.4 L Chloride 119 H Carbon Dioxide 21 L BUN 16 Creatinine 0.57 L Glucose 88 Calcium 7.9 L Consult Discharge Plan - Plan Referrals: NONE,PCP [Primary Care Provider] -
[2017-10-19] MEDS: Pantoprazole 40 MG VIAL IVP SCH (16:19)
[2017-10-19] MEDS: Ondansetron 4 MG/2 ML VIAL IVP PRN (16:57)
--- NOTE | 2017-10-19 17:20 | Event Note ---
Date of Encounter: 10/19/17 Time of Encounter: 09:25 This is my attestation to Dr. Cooper Britton's progress notes from 10/19/17 as I am unable to directly type /addendum that note I examined this patient and my medical decision-making was reviewed with the Resident Physician on 10/19/17. I agree with the documented findings, disposition and treatment plan as described except to the extent set forth below. Seen and examined at the bedside with his sister who is his caregiver 72 M with CP, hx of CA with colostomy, BPH. He is admitted and being managed for acute blood loss anemia secondary to Upper GI bleed. Per caregiver, patient is not as verbal as he usually is and he looks more tired , and not as verbal as he usually would be EGD done 10/18 shows bleeding gastritis with blood clot. Patient has more anemia today, Hb 6.6, tachycardic We have ordered blood transfusion, possible repeat EGD a.m., GI/Surgery is following Physical exam: VSS, blood pressure is sustained, contracted RUE, LE. NO edema, chest is CTAB, no added sounds. Abdomen is not tender, Right colostomy noted, bag filled with dark liquid stool Labs and Imaging reviewed: Mild leukopenia, Hb 6.6 Chem hypokalemia, BUN cr at baseline Plan: Transfuse 2 units RBCs today, continue to keep NPO except clear liquids, GI is following, possible repeat EGD a.m. high risk condition due to acute ongoing blood loss with risk of progression to shock. Continue close monitoring Rest of details as in the resident physicians documentation.
[2017-10-19 17:45] LABS: Hemoglobin 9.8 g/dL (12.9-16.9)
--- NOTE | 2017-10-19 20:04 | Electrocardiograph Report ---
[place] [id number] Test Date: 2017-10-19 Pat Name: Jose F Gonsalez Department: 111 Room: 2N5 Gender: M Loom Setter: HECTOR : 1945 Requested By: Figueroa Quiroz Order Number: [id number] Reading MD: Mei Granda Measurements Intervals [place] Rate: 97 P: 57 OK: 153 QRS: 50 QRSD: 80 T: 59 QT: 338 QTc: 393 Interpretive Statements SINUS RHYTHM Electronically Signed On 10-19-2017 20:03:00 EST by Mei Granda
[2017-10-20 04:11] LABS: Basophils % 0.8 %; Eosinophils # 0.2 K/mcL (0.0-0.6); Eosinophils % 4.2 %; Hematocrit 28.8 % (37.5-50.1); Hemoglobin 9.5 g/dL (12.9-16.9); Immature Granulocytes % 0.4 % (0-4); Lymphocytes # 1.3 K/mcL (0.6-4.6); Mean Corpuscular Hemoglobin 28.4 pg (28.0-33.3); Mean Corpuscular Volume 86.2 fL (83.0-100.0); Mean Platelet Volume 9.3 fL (9.4-12.4); Monocytes # 0.3 K/mcL (0.0-1.3); Monocytes % 6.7 %; Neutrophils # 3.1 K/mcL (1.6-8.9); Platelet Count 183 K/mcL (140-400); Red Blood Count 3.34 M/mcL (4.19-5.50); Red Cell Distribution Width 16.4 % (11.5-14.5); Segmented Neutrophils % 61.9 %
[2017-10-20] MEDS: 0.9 % Sodium Chloride 1,000 ML IVC SCH ×2 (05:29→14:29)
[2017-10-20] MEDS: Pantoprazole 40 MG VIAL IVP SCH ×2 (05:30→17:16)
--- NOTE | 2017-10-20 07:28 | General Surgery Progress Note ---
<Figueroa Quiroz - Last Filed: 10/20/17 07:26> Date of Encounter: 10/20/17 Time of Encounter: 07:26 - Assessment and Plan (1) Anemia due to blood loss, acute Status: Acute Continues to have dark bloody stools in colostomy, day 3. Transferred from [facility] due to hemoglobin 7. No active bleed visualized on EGD. Received 3 units prbc on 10/29/17 after hgb returned 6.6. hgb last night and this AM ~9.5 and stable. Patient has clinically improved and is more responsive. episode of tachy, an EKG was ordered and showed sinus rhythm. - closely monitor vitals, H&H. - closely monitor contents of colostomy bag for gross blood. - NPO (2) Upper GI bleed Status: Acute EGD 10/18/17 - acute hemorrhagic gastritis with clot performed by Dr. Taye Markham. No acute hemorrhage visualized. - see plan above (3) Cerebral palsy Status: Chronic has cerebral palsy Qualifiers: Cerebral palsy type: unspecified type Qualified Code(s): G80.9 - Cerebral palsy, unspecified (4) Colostomy care Status: Chronic Has a colostomy bag on right side of abdomen. Bag was clear on inspection post bowel prep Subjective Patient reports: feels better, blood in stool, afebrile Narrative: Mr Gonsalez is 72 yo M w/ PMH of cerebral palsy hospitalized for acute gastritis. He received 3 units of pRBC's yesterday, and his hgb remained stable ~9.5. Patient smiled and responded to answers today. Mother reports that there still is dark blood stools in colostomy. Objective Vital Signs - Last 8 Hours Temp Pulse Resp BP Pulse Ox 10/20/17 05:00 97.8 F 90 15 128/60 95 Intake and Output 10/19/17 10/19/17 10/20/17 15:59 23:59 07:59 Intake Total 972 / 972 900 / 900 Output Total 350 / 350 0 / 0 Balance 972 / 972 -335 / -335 900 / 900 Intake: IV Fluids / 900 / 900 0.9 % Sodium Chloride 1,000 ML 900 / 900 @ 100 mls/hr IVC .Q10H [facility] Rx#: [id number] Oral 60 / 60 0 / 0 0 / 0 Blood Product 827 / 827 Rbcs Leuko Poor As-1 Unit 276 / 276 [id number] Rbcs Leuko Poor As-1 Unit 275 / 275 [id number] Rbcs Leuko Poor As-3 Ph Unit 276 / 276 [id number] Output: Urine 0 / 0 0 / 0 Stool 350 / 350 Other: Meal Breakfast Percent of Meal Consumed 0% # Urine Diapers 1 Weight 64.7 kg Patient Weight 10/20/17 23:59 Weight 64.7 kg - General physical appearance no distress, no pain - Eyes normal ocular movement - ENT normal mucosa, no hearing loss, no congestion - Respiratory normal expansion, normal respiratory effort, clear to percussion, clear to auscultation - Cardiovascular Cardiovascular exam: Present: RRR - Abdomen Abdomen: Present: bowel sounds present, soft, non tender - Integumentary no rash, no growths, no abnormal pigmentation - Neurologic normal sensation - Psychiatric other (patient is unable to answer questions, but mother reports patient is close to baseline mental status) - Labs 10/20/17 03:00 10/19/17 03:53 Consult Discharge Plan - Plan Instructions: Omeprazole (By mouth), Gastrointestinal Bleeding (DC), Gastrointestinal Bleeding (GEN), Chronic Obstructive Pulmonary Disease (DC), Chronic Hypertension (DC), Anemia (GEN) Referrals: Taye Markham MD [Partnered Physician] - 11/23/17 8:55 am Agueda Suresh MD [Partnered Physician] - 10/25/17 10:15 am NONE,PCP [Primary Care Provider] - 11/23/17 8:55 am Prescriptions: Omeprazole [PriLOSEC] 40 mg PO BID #60 cap <Taye Markham - Last Filed: 10/22/17 13:14> Date of Encounter: 10/20/17 Objective - Labs 10/21/17 05:29 10/21/17 05:29 - Attending Attestation I examined this patient and my medical decision-making was reviewed with the Resident Physician. I agree with the documented findings, disposition and treatment plan as described except to the extent set forth below. The patient was seen and evaluated on morning rounds. His hemoglobin is stable. We will continue to observe him closely. He will require upper endoscopy for any signs of rebleeding .Taye Markham MD FACS
--- NOTE | 2017-10-20 08:32 | Internal Med Progress Note ---
<Cooper Britton - Last Filed: 10/20/17 12:55> Date of Encounter: 10/20/17 Time of Encounter: 08:32 - Assessment and plan (1) Anemia due to blood loss, acute Current Visit: Yes Status: Acute Assessment and plan: Patient for some reason did not receive his 2 units of blood on 10/17. Today his hemoglobin was 9.6 after having the EGD done 2 10/18/17 that showed no active bleeding. At this time surgery ordered 3 units of packed red blood cells stat. These were then transfused to the patient. Patient did get one extra transfusion. So a total of 4 units of blood were given. continue protonix gtt surgery evaluation appreciated they did an EGD which showed no active bleeding but did have a large clot that was removed from the stomach. We also ordered an EKG due to patient being tachycardic. That showed no acute findings. There were no acute ST changes or any abnormalities. They are keeping patient nothing by mouth. In case he needs a second EGD for active bleeding. We will closely monitor H&H Family says that today he looks much better and seems a more himself and he is much more active. We will continue to monitor his CBC and await any further surgery recommendations. (2) Upper GI bleed Current Visit: Yes Status: Acute Assessment and plan: as listed above (3) Cerebral palsy Current Visit: Yes Status: Chronic Assessment and plan: Family S that we get a speech evaluation for a swallow study to see if we can advance his diet from liquids to soft foods. Patient will then again be nothing by mouth at midnight in case he needs EGD done tomorrow Qualifiers: Cerebral palsy type: unspecified type Qualified Code(s): G80.9 - Cerebral palsy, unspecified (4) Colostomy care Current Visit: Yes Status: Chronic Assessment and plan: Patient has colostomy bag on right side of abdomen. (5) BPH (benign prostatic hyperplasia) Current Visit: Yes Status: Chronic Assessment and plan: continue Tamsulosin Qualifiers: Lower urinary tract symptom presence: unspecified whether lower urinary tract symptoms present Qualified Code(s): N40.0 - Benign prostatic hyperplasia without lower urinary tract symptoms (6) DVT prophylaxis Current Visit: Yes Status: Acute Assessment and plan: SCD (7) Hypertension Current Visit: Yes Status: Chronic Assessment and plan: BP within acceptable range conitnue home medications will closely monitor BP Qualifiers: Hypertension type: essential hypertension Qualified Code(s): I10 - Essential (primary) hypertension (8) Hypokalemia Current Visit: Yes Status: Acute Assessment and plan: Patient did have hypokalemia of 3.4 most likely due to loss from GI bleed and in his colostomy bag. We will give him 20 mEq via IV today. We will monitor and repeat BMP tomorrow. - Subjective Interval history: Patient was lying in bed in no distress. There was blood at the colostomy bag but now seems to be more brown than black/red like it was yesterday. Family was sitting bedside and said that he is still doing well did ask about possibly advancing his diet to soft foods as he does not like only liquids. He said he has seemed a little more weak recently. He said he is not complaining of any fevers, chills, nausea, vomiting, chest pain, shortness of breath. He does have an ostomy bag so there is no changes in bowel movements. Patient otherwise has no complaints. There were no overnight events. - Constitutional Vitals: Temp Pulse Resp BP Pulse Ox 98.0 F 75 14 122/59 95 10/20/17 07:59 10/20/17 07:59 10/20/17 07:59 10/20/17 07:59 10/20/17 07:59 General appearance: Present: A&O X 0, no acute distress - Head Head exam: Present: atraumatic, normocephalic - Eye Eye exam: Present: PERRL, conjuntiva pink, sclera anicteric Pupils: Present: PERRL - Neck Neck exam general surgery: Present: supple, trachea midline. Absent: lymphadenopathy - Respiratory Respiratory exam: Present: CTAB. Absent: accessory muscle use, rales, rhonchi, wheezes - Cardiovascular Cardiovascular exam: Present: RRR, +S1, +S2. Absent: diastolic murmur, gallop, rubs, systolic murmur - GI/Abdominal GI/Abdominal exam: Present: normal bowel sounds, soft, no peritoneal signs. Absent: distended, tenderness - Extremities Exam Extremities exam: Present: warm, radial pulses palpable and symmetrical. Absent : calf tenderness, cyanotic, pedal edema - Neurological Exam Neurological exam: Present: no focal deficits. Absent: pronater drift, facial droop, speech deficit - Skin Skin exam: Present: dry, intact Internal Medicine: Result - Labs CBC & Chem 7: 10/20/17 03:00 10/19/17 03:53 Labs: Short CBC 10/19/17 10/20/17 Range/Units 17:07 03:00 WBC 5.0 (4.3-11.1) K/mcL Hgb 9.8 L D 9.5 L (12.9-16.9) g/dL Hct 30.0 L 28.8 L (37.5-50.1) % Plt Count 183 (140-400) K/mcL Neutrophils # 3.1 (1.6-8.9) K/mcL Consult Discharge Plan - Plan Referrals: NONE,PCP [Primary Care Provider] - <Gilberto Hayes - Last Filed: 10/20/17 16:43> Date of Encounter: 10/20/17 - Constitutional Vitals: Temp Pulse Resp BP Pulse Ox 98.4 F 76 16 120/70 97 10/20/17 15:35 10/20/17 15:35 10/20/17 15:35 10/20/17 15:35 10/20/17 15:35 Internal Medicine: Result - Labs CBC & Chem 7: 10/20/17 03:00 10/19/17 03:53 Labs: Short CBC 10/19/17 10/20/17 Range/Units 17:07 03:00 WBC 5.0 (4.3-11.1) K/mcL Hgb 9.8 L D 9.5 L (12.9-16.9) g/dL Hct 30.0 L 28.8 L (37.5-50.1) % Plt Count 183 (140-400) K/mcL Neutrophils # 3.1 (1.6-8.9) K/mcL - Attending Attestation I examined this patient and my medical decision-making was reviewed with the Resident Physician on 10/20/17. I agree with the documented findings, disposition and treatment plan as described except to the extent set forth below. Seen and examined at the bedside with his sister who is his caregiver 72 M with CP, hx of CA with colostomy, BPH. He is admitted and being managed for acute blood loss anemia secondary to Upper GI bleed. He looks much more improved today, he is verbal and communicating His colostomy bag output is clearing up EGD done 10/18 shows bleeding gastritis with blood clot. Patient has more anemia today, Hb 6.6, tachycardic Hb has improved, Chem from 10/19 with mild hypokalemia Physical exam: VSS, blood pressure is sustained, contracted RUE, LE. No edema, chest is CTAB, no added sounds. Abdomen is not tender, Right colostomy noted, bag filled with dark liquid stool Labs and Imaging reviewed: Mild leukopenia, Hb 6.6 Chem hypokalemia, BUN cr at baseline Plan: Patient may have ice chips Continue current care. Rest of details as in the resident physicians documentation.
[2017-10-20] MEDS: Metoprolol XL (24 HR) Succ 50 MG TAB.ER.24H PO SCH (08:51)
[2017-10-20] MEDS: Ondansetron 4 MG/2 ML VIAL IVP PRN (09:04)
[2017-10-20] MEDS ORDERED: *HR* HYDROcodone/Acet 5/325 mg TABLET PO PRN (15:27)
[2017-10-20] MEDS ORDERED: *HR* Morphine 2 MG/ML SYRINGE IVP PRN (15:28)
[2017-10-21] MEDS: 0.9 % Sodium Chloride 1,000 ML IVC SCH (03:00)
[2017-10-21] MEDS: Acetaminophen 325 MG TABLET PO PRN (04:05)
[2017-10-21] MEDS: Pantoprazole 40 MG VIAL IVP SCH (05:46)
[2017-10-21 05:49] LABS: Basophils % 0.6 %; Eosinophils # 0.2 K/mcL (0.0-0.6); Eosinophils % 3.7 %; Hematocrit 28.9 % (37.5-50.1); Hemoglobin 9.5 g/dL (12.9-16.9); Immature Granulocytes % 0.4 % (0-4); Lymphocytes # 1.2 K/mcL (0.6-4.6); Lymphocytes % 23.8 %; Mean Corpuscular HGB Conc 32.9 g/dL (31.6-35.5); Mean Corpuscular Hemoglobin 28.1 pg (28.0-33.3); Mean Corpuscular Volume 85.5 fL (83.0-100.0); Mean Platelet Volume 8.9 fL (9.4-12.4); Monocytes # 0.4 K/mcL (0.0-1.3); Monocytes % 6.9 %; Neutrophils # 3.3 K/mcL (1.6-8.9); Platelet Count 176 K/mcL (140-400); Red Blood Count 3.38 M/mcL (4.19-5.50); Red Cell Distribution Width 16.8 % (11.5-14.5); Segmented Neutrophils % 64.6 %
[2017-10-21 06:05] LABS: BUN/Creatinine Ratio 15 (6-26); Blood Urea Nitrogen 8 mg/dL (8-23); Carbon Dioxide 19 mEq/L (23-29); Chloride 119 mEq/L (98-107); Glucose 80 mg/dL (70-105); Osmolality,Calculated 291 (280-300); Potassium 3.4 mEq/L (3.5-5.1); Sodium 142 mEq/L (136-145); eGFR For African Americans > 60 (> 60); eGFR For Non-African Americans > 60 (> 60)
[2017-10-21] MEDS: Metoprolol XL (24 HR) Succ 50 MG TAB.ER.24H PO SCH (08:45)
--- NOTE | 2017-10-21 09:18 | General Surgery Progress Note ---
<Figueroa Quiroz - Last Filed: 10/21/17 09:16> Date of Encounter: 10/21/17 Time of Encounter: 09:16 - Assessment and Plan (1) Anemia due to blood loss, acute Current Visit: Yes Status: Acute Continues to have dark bloody stools in colostomy, day 4. Transferred from [facility] due to hemoglobin 7. No active bleed visualized on EGD. Received 3 units prbc on 10/29/17 after hgb returned 6.6. patient hgb has remained stable ~9.5 for the last 2.5 days since receiving prbc. patient is clilnically stable. - closely monitor vitals, H&H - closely monitor contents of colostomy bag for gross blood. - NPO (2) Upper GI bleed Current Visit: Yes Status: Acute EGD 10/18/17 - acute hemorrhagic gastritis with clot performed by Dr. Taye Markham. No acute hemorrhage visualized. - see plan above (3) Cerebral palsy Current Visit: Yes Status: Chronic has cerebral palsy Qualifiers: Cerebral palsy type: unspecified type Qualified Code(s): G80.9 - Cerebral palsy, unspecified (4) Colostomy care Current Visit: Yes Status: Chronic Has a colostomy bag on right side of abdomen. Bag was clear on inspection post bowel prep Subjective Patient reports: no new complaints, blood in stool, afebrile Narrative: Mr Gonsalez is a 72 yo M who is seen for acute gastritis w/ clot and no active upper gi bleed and hx of cerebral palsy. Today he reports "feeling tired", but did not respond to other questions. Objective Vital Signs - Last 8 Hours Temp Pulse Resp BP Pulse Ox 10/21/17 03:50 97.5 F L 74 17 123/63 95 Intake and Output 10/20/17 10/21/17 10/21/17 23:59 07:59 15:59 Intake Total 0 / 0 1700 / 1700 Output Total 150 / 150 0 / 0 Balance -150 / -150 1700 / 1700 Intake: IV Fluids 1000 / 1000 0.9 % Sodium Chloride 1,000 ML 1000 / 1000 @ 100 mls/hr IVC .Q10H [facility] Rx#: [id number] Oral 0 / 0 700 / 700 Output: Urine 0 / 0 0 / 0 Stool 150 / 150 Other: # Urine Diapers 1 Weight 64.9 kg Patient Weight 10/21/17 23:59 Weight 64.9 kg - General physical appearance no distress, no pain, chronically ill - ENT no hearing loss, no congestion - Neck Neck exam: no lymphadectomy, no venous distension - Respiratory normal expansion, normal respiratory effort, clear to percussion, clear to auscultation - Cardiovascular Cardiovascular exam: Present: RRR - Abdomen Abdomen: Present: bowel sounds present, soft, non tender Additional Comments: Ostomy on right - Integumentary no rash, no growths, no abnormal pigmentation - Neurologic normal sensation - Musculoskeletal normal gait - Psychiatric other (due to cerebral palsy, unable to evaluate.) - Labs 10/21/17 05:29 10/21/17 05:29 Diabetes panel 10/21/17 Range/Units 05:29 Sodium 142 (136-145) mEq/L Potassium 3.4 L (3.5-5.1) mEq/L Chloride 119 H (98-107) mEq/L Carbon Dioxide 19 L (23-29) mEq/L BUN 8 (8-23) mg/dL Creatinine 0.52 L (0.70-1.30) mg/dL Glucose 80 (70-105) mg/dL Calcium 8.0 L (8.6-10.3) mg/dL Calcium panel 10/21/17 Range/Units 05:29 Calcium 8.0 L (8.6-10.3) mg/dL Pituitary panel 10/21/17 Range/Units 05:29 Sodium 142 (136-145) mEq/L Potassium 3.4 L (3.5-5.1) mEq/L Chloride 119 H (98-107) mEq/L Carbon Dioxide 19 L (23-29) mEq/L BUN 8 (8-23) mg/dL Creatinine 0.52 L (0.70-1.30) mg/dL Glucose 80 (70-105) mg/dL Calcium 8.0 L (8.6-10.3) mg/dL Adrenal panel 10/21/17 Range/Units 05:29 Sodium 142 (136-145) mEq/L Potassium 3.4 L (3.5-5.1) mEq/L Chloride 119 H (98-107) mEq/L Carbon Dioxide 19 L (23-29) mEq/L BUN 8 (8-23) mg/dL Creatinine 0.52 L (0.70-1.30) mg/dL Glucose 80 (70-105) mg/dL Calcium 8.0 L (8.6-10.3) mg/dL Consult Discharge Plan - Plan Instructions: Omeprazole (By mouth), Gastrointestinal Bleeding (DC), Gastrointestinal Bleeding (GEN), Chronic Obstructive Pulmonary Disease (DC), Chronic Hypertension (DC), Anemia (GEN) Referrals: NONE,PCP [Primary Care Provider] - Prescriptions: Omeprazole [PriLOSEC] 40 mg PO BID #60 cap <Jose Laws - Last Filed: 10/21/17 12:24> Date of Encounter: 10/21/17 Objective Intake and Output 10/20/17 10/21/17 10/21/17 23:59 07:59 15:59 Intake Total 0 / 0 1700 / 1700 Output Total 150 / 150 0 / 0 Balance -150 / -150 1700 / 1700 Intake: IV Fluids 1000 / 1000 0.9 % Sodium Chloride 1,000 ML 1000 / 1000 @ 100 mls/hr IVC .Q10H [facility] Rx#: [id number] Oral 0 / 0 700 / 700 Output: Urine 0 / 0 0 / 0 Stool 150 / 150 Other: # Urine Diapers 1 Weight 64.9 kg Patient Weight 10/21/17 23:59 Weight 64.9 kg - Labs 10/21/17 05:29 10/21/17 05:29 Diabetes panel 10/21/17 Range/Units 05:29 Sodium 142 (136-145) mEq/L Potassium 3.4 L (3.5-5.1) mEq/L Chloride 119 H (98-107) mEq/L Carbon Dioxide 19 L (23-29) mEq/L BUN 8 (8-23) mg/dL Creatinine 0.52 L (0.70-1.30) mg/dL Glucose 80 (70-105) mg/dL Calcium 8.0 L (8.6-10.3) mg/dL Calcium panel 10/21/17 Range/Units 05:29 Calcium 8.0 L (8.6-10.3) mg/dL Pituitary panel 10/21/17 Range/Units 05:29 Sodium 142 (136-145) mEq/L Potassium 3.4 L (3.5-5.1) mEq/L Chloride 119 H (98-107) mEq/L Carbon Dioxide 19 L (23-29) mEq/L BUN 8 (8-23) mg/dL Creatinine 0.52 L (0.70-1.30) mg/dL Glucose 80 (70-105) mg/dL Calcium 8.0 L (8.6-10.3) mg/dL Adrenal panel 10/21/17 Range/Units 05:29 Sodium 142 (136-145) mEq/L Potassium 3.4 L (3.5-5.1) mEq/L Chloride 119 H (98-107) mEq/L Carbon Dioxide 19 L (23-29) mEq/L BUN 8 (8-23) mg/dL Creatinine 0.52 L (0.70-1.30) mg/dL Glucose 80 (70-105) mg/dL Calcium 8.0 L (8.6-10.3) mg/dL - Attending Attestation I have personally seen and examined the patient. I have reviewed pertinent labs , imaging, progress notes, including this one. I agree with the above assessment and plan and wish to include the following... 72M admitted with UGIB; no definitive cause (ie: ulcer, polyp/tumor); transfused with appropriate response. HDS, h/h stable; no more bloody stools; trend h/h per primary; okay for d/c per surgery no acute intervention required
--- NOTE | 2017-10-21 09:55 | Discharge Summary ---
<Cooper Britton - Last Filed: 10/21/17 10:05> Date of Encounter: 10/21/17 Time of Encounter: 09:53 - Discharge Diagnosis (1) Anemia due to blood loss, acute Priority: Secondary Status: Acute (2) Upper GI bleed Priority: Primary Status: Acute (3) Cerebral palsy Priority: Secondary Status: Chronic Qualifiers: Cerebral palsy type: unspecified type Qualified Code(s): G80.9 - Cerebral palsy, unspecified (4) Colostomy care Priority: Secondary Status: Chronic (5) BPH (benign prostatic hyperplasia) Priority: Secondary Status: Chronic Qualifiers: Lower urinary tract symptom presence: unspecified whether lower urinary tract symptoms present Qualified Code(s): N40.0 - Benign prostatic hyperplasia without lower urinary tract symptoms (6) DVT prophylaxis Priority: Secondary Status: Acute (7) Hypertension Priority: Secondary Status: Chronic Qualifiers: Hypertension type: essential hypertension Qualified Code(s): I10 - Essential (primary) hypertension (8) Hypokalemia Priority: Secondary Status: Acute - Discharge Medications Prescriptions: Omeprazole [PriLOSEC] 40 mg PO BID #60 cap Home Medications: Acetaminophen [Non-Aspirin] 325 mg PO Q6H PRN 08/03/16 [History] Budesonide [Pulmicort] 0.5 mg IH BID PRN 08/03/16 [History] Cyanocobalamin (B-12) [Vitamin B12] 1,000 mcg PO DAILY 08/03/16 [History] HYDROcodone/Acet 5/325 mg [Star 5-325 mg] 1 tab PO Q6H PRN 08/03/16 [History] HydrOXYzine 10 mg PO TID PRN 08/03/16 [History] Montelukast [Singulair] 10 mg PO DAILY 08/03/16 [History] Nystatin Cream [Mycostatin Cream] 1 appl TP BID PRN 08/03/16 [History] Ondansetron [Zuplenz] 4 mg PO Q8H PRN 08/03/16 [History] Sertraline [Zoloft] 25 mg PO DAILY 08/03/16 [History] Tamsulosin [Flomax] 0.8 mg PO DAILY #60 capsule 01/05/17 [Rx] Albuterol Sulfate 2.5 mg IH Q4H PRN 09/08/17 [History] Ferrous Sulfate [Iron] 325 mg PO DAILY 09/08/17 [History] Melatonin [Melatin] 3 mg PO HS PRN 09/08/17 [History] Metoprolol XL (24 HR) Succ [Toprol Xl] 50 mg PO DAILY 09/08/17 [History] Multivit-Min/FA/Lycopen/Lutein [Adults 50+ Multivitamin Tablet] 1 each PO DAILY 09/08/17 [History] Ranitidine HCl [Acid Microcomputer Support Specialist] 150 mg PO BID 09/08/17 [History] Albuterol Sulfate [Albuterol Inhaler] 2 puff IH Q4HR PRN 10/16/17 [History] Fluticasone Propionate Nasal [Flonase] 1 spr NS DAILY PRN 10/18/17 [History] Acetaminophen [Tylenol] 650 mg PO Q4HR PRN tablet 10/21/17 [Rx] Omeprazole [PriLOSEC] 40 mg PO BID #60 cap 10/21/17 [Rx] Allergies/Adverse Reactions: 3 Allergy/AdvReac Type Severity Reaction Status Date / Time Sulfa (Sulfonamide Allergy Hives Verified 10/16/17 10:38 Antibiotics) Procedures/tests Complete & Pending: Procedures Performed prior 72 hours Category Date Time Status EKG [ECG 12 lead ECG] [ECG] Routine Y 10/19/17 07:01 Completed Date of admission: 10/16/17 16:48 Primary care physician: PCP NONE Consults: 10/16/17 17:59 Consult to Folder Inspector [CONS] Routine Reason for SW Consult: [facility] (AIDES 40 HR/WK, NURSE VISITS WEEKLY), HAS HOSPITAL BED, SHOWER CHAIR, WHEELCHAIR, SISTER PRIMARY CAREGIVER 10/16/17 20:36 Consult to Surgery [CONS] Routine Consulting Provider: Taye Markham Reason for Consult: gi bleed , called by ER Call Completed: Yes 10/20/17 10:09 Consult to Speech Therapy [CONS] Routine Comment: Evaluate, develop and implement POC Reason for Consult: swallow eval Call Completed: No Discharging clinician: Cooper Britton Anticipated date of discharge: 10/21/17 - Patient Status Disposition: Home, Self-Care Condition: Fair Functional capacity at discharge: bed bound Overall status at discharge: patient is back to baseline - Discharge Instructions Instructions: Omeprazole (By mouth), Gastrointestinal Bleeding (DC), Gastrointestinal Bleeding (GEN), Chronic Obstructive Pulmonary Disease (DC), Chronic Hypertension (DC), Anemia (GEN) Follow Up With: Taye Markham MD [Partnered Physician] - 11/23/17 8:55 am Agueda Suresh MD [Partnered Physician] - 10/25/17 10:15 am NONE,PCP [Primary Care Provider] - 11/23/17 8:55 am - Diet and Activity Activity: as per physical therapy Diet: advance to your usual diet Interval History: Family states patient is feeling much better today. He is acting his normal self. He is making his normal motions. This is not complaining of any chest pain, abdominal pain, shortness of breath, fevers, chills, pain with urination or changes in his bowel movements. They said that there is no longer blood coming in his colostomy bag seems to now be bilateral and normal colored. Overall there are no other complaints. No overnight events. Hospital course: Mr. Gonsalez is a 72 year old male was transferred here from [facility] due to have any hemoglobin below 7. Patient does have history of cerebral palsy, BPH and has a colostomy bag in his right side. Family had been noticing really dark stools a day prior to his admission. He was Hemoccult positive. His given one unit of blood [facility] and started on Protonix drip. He was tachycardic at that time. CT showed small parastomal hernia with no other acute findings. He was transferred here admitted to our hospitalist service and general surgery was consulted. General surgery did do an endoscopy of the patient which showed to be a large clot which was removed but there was no active bleeding. He was continued on Protonix. He did get 3 units of packed red blood cells while I was here. After getting his hemoglobin stabilized at 9.6. Patient was able to advance his diet to his normal diet. Family felt comfortable to take him home as they are the primary caregivers. Patient is discharged home in stable condition and will follow up with his primary care physician. - Time Spent with Patient Total time spent providing and/or coordinating discharge services: Greater than 30 minutes - Constitutional Vitals: Temp Pulse Resp BP Pulse Ox 97.5 F L 74 17 123/63 95 10/21/17 03:50 10/21/17 03:50 10/21/17 03:50 10/21/17 03:50 10/21/17 03:50 General appearance: Present: A&O X 0, no acute distress - Head Head exam: Present: atraumatic, normocephalic - Eye Eye exam: Present: PERRL, conjuntiva pink, sclera anicteric Pupils: Present: PERRL - Neck Neck exam general surgery: Present: supple, trachea midline. Absent: lymphadenopathy - Respiratory Respiratory exam: Present: CTAB. Absent: accessory muscle use, rales, rhonchi, wheezes - Cardiovascular Cardiovascular exam: Present: RRR, +S1, +S2. Absent: diastolic murmur, gallop, rubs, systolic murmur - GI/Abdominal GI/Abdominal exam: Present: normal bowel sounds, soft, no peritoneal signs. Absent: distended, tenderness Additional comments: Colostomy bag on right side. Does have bile colored fluid and there are no signs of any blood or dark stools. - Extremities Exam Extremities exam: Present: warm, radial pulses palpable and symmetrical. Absent : calf tenderness, cyanotic, pedal edema - Neurological Exam Neurological exam: Present: no focal deficits. Absent: pronater drift, facial droop, speech deficit - Skin Skin exam: Present: dry, intact <Gilberto Hayes - Last Filed: 10/21/17 16:42> Date of Encounter: 10/21/17 Procedures/tests Complete & Pending: Procedures Performed prior 72 hours Category Date Time Status EKG [ECG 12 lead ECG] [ECG] Routine Y 10/19/17 07:01 Completed Date of admission: 10/16/17 16:48 Primary care physician: PCP NONE Consults: 10/16/17 17:59 Consult to Folder Inspector [CONS] Routine Reason for SW Consult: HOME [facility] (AIDES 40 HR/WK, NURSE VISITS WEEKLY), HAS HOSPITAL BED, SHOWER CHAIR, WHEELCHAIR, SISTER PRIMARY CAREGIVER 10/16/17 20:36 Consult to Surgery [CONS] Routine Consulting Provider: Taye Markham Reason for Consult: gi bleed , called by ER Call Completed: Yes 10/20/17 10:09 Consult to Speech Therapy [CONS] Routine Comment: Evaluate, develop and implement POC Reason for Consult: swallow eval Call Completed: No Hospital course: Mr. Gonsalez is a 72 year old male - Time Spent with Patient Total time spent providing and/or coordinating discharge services: - Constitutional Vitals: Temp Pulse Resp BP Pulse Ox 97.6 F 61 16 127/89 98 10/21/17 12:00 10/21/17 12:00 10/21/17 12:00 10/21/17 12:00 10/21/17 12:00 - Attending Attestation I examined this patient and my medical decision-making was reviewed with the Resident Physician on 10/21/17. I agree with the documented findings, disposition and treatment plan as described except to the extent set forth below. Seen and examined at the bedside with his sister who is his caregiver 72 M with CP, hx of CA with colostomy, BPH. He is admitted and being managed for acute blood loss anemia secondary to Upper GI bleed. He looks much more improved today, he is verbal and communicating His colostomy bag output containc bilious fluid, no blood EGD done 10/18 shows bleeding gastritis with blood clot. Patient's HB has been stable for 48 hrs with no more bleeding He has been hemodynamically stable Physical exam: VSS, blood pressure is sustained, contracted RUE, LE. No edema, chest is CTAB, no added sounds. Abdomen is not tender, Right colostomy noted, bilious non-bloody content Labs and Imaging reviewed: stable HB, mild hypokalemia Plan: Regular diet, if tolerated, patient may be discharged home on PPI BID, continue other home meds Follow up with PCP Rest of details as in the resident physicians documentation.
[2017-10-21 12:53] VITALS: BP 127/89
--- NOTE | 2017-10-21 14:46 | Physician Discharge Referral ---
Home Health/Hosp Referral Info Transfer to: Home Health Attending Provider: Trini Hayes Provider in Charge Post Discharge: PCP - Diagnosis (1) Anemia due to blood loss, acute Priority: Secondary Status: Acute (2) Upper GI bleed Priority: Primary Status: Acute (3) Cerebral palsy Priority: Secondary Status: Chronic (4) Colostomy care Priority: Secondary Status: Chronic (5) BPH (benign prostatic hyperplasia) Priority: Secondary Status: Chronic (6) DVT prophylaxis Priority: Secondary Status: Acute (7) Hypertension Priority: Secondary Status: Chronic (8) Hypokalemia Priority: Secondary Status: Acute - Respiratory Orders Smoking Cessation: Smoking cessation has been advised. For more information, call the [place] Tobacco Quit Line at 2-179-PSSL-NOW. - Diet/Nutrition Diet/Nutrition Orders: Mechanical Soft - Activity Activity Orders: Bedrest - Services Needed Following services are medically necessary services: Nursing, Home Health Aide - Transfer Medications Prescriptions: Omeprazole [PriLOSEC] 40 mg PO BID #60 cap Home Medications: Acetaminophen [Non-Aspirin] 325 mg PO Q6H PRN 08/03/16 [History] Budesonide [Pulmicort] 0.5 mg IH BID PRN 08/03/16 [History] Cyanocobalamin (B-12) [Vitamin B12] 1,000 mcg PO DAILY 08/03/16 [History] HYDROcodone/Acet 5/325 mg [[place] 5-325 mg] 1 tab PO Q6H PRN 08/03/16 [History] HydrOXYzine 10 mg PO TID PRN 08/03/16 [History] Montelukast [Singulair] 10 mg PO DAILY 08/03/16 [History] Nystatin Cream [Mycostatin Cream] 1 appl TP BID PRN 08/03/16 [History] Ondansetron [Zuplenz] 4 mg PO Q8H PRN 08/03/16 [History] Sertraline [Zoloft] 25 mg PO DAILY 08/03/16 [History] Tamsulosin [Flomax] 0.8 mg PO DAILY #60 capsule 01/05/17 [Rx] Albuterol Sulfate 2.5 mg IH Q4H PRN 09/08/17 [History] Ferrous Sulfate [Iron] 325 mg PO DAILY 09/08/17 [History] Melatonin [Melatin] 3 mg PO HS PRN 09/08/17 [History] Metoprolol XL (24 HR) Succ [Toprol Xl] 50 mg PO DAILY 09/08/17 [History] Multivit-Min/FA/Lycopen/Lutein [Adults 50+ Multivitamin Tablet] 1 each PO DAILY 09/08/17 [History] Ranitidine HCl [Acid Apartment Community Manager] 150 mg PO BID 09/08/17 [History] Albuterol Sulfate [Albuterol Inhaler] 2 puff IH Q4HR PRN 10/16/17 [History] Fluticasone Propionate Nasal [Flonase] 1 spr NS DAILY PRN 10/18/17 [History] Acetaminophen [Tylenol] 650 mg PO Q4HR PRN tablet 10/21/17 [Rx] Omeprazole [PriLOSEC] 40 mg PO BID #60 cap 10/21/17 [Rx] Allergies/Adverse Reactions: 3 Allergy/AdvReac Type Severity Reaction Status Date / Time Sulfa (Sulfonamide Allergy Hives Verified 10/16/17 10:38 Antibiotics) Certification: Further, I certify that my clinical findings support that this patient is homebound (i.e. absences from home require considerable and taxing effort and are for medical reasons or sikh services or infrequently or short duration when for other reasons) because: Homebound Reason: Patient requires assistance of a person or device to safely leave home, Leaving home requires considerable and taxing effort due to condition Attestation: My signature below is to certify that this patient is under my care and that I, or nurse practitioner, or a physician's school health assistant working with me, has a face-to -face encounter with this patient.
== END 2017-10-21 14:50 | disposition home or self-care (01) | DRG 378 ==
LOC: SUATTDRO 16:48 → 2NENU 16:48
PROVIDERS: ADMIT Hospitalist; ATTEND Internal Medicine
PROC: ENDOEBX (2017-10-18 15:30)

== ENCOUNTER 2017-11-16 13:55 | Inpatient (IN) ==
[2017-11-16] MEDS ORDERED: Naloxone 0.4 MG/ML INJ IVP PRN (17:19)
[2017-11-16] MEDS ORDERED: Fluticasone Propionate Nasal 50 MCG/SPRAY BOTTLE NS PRN (17:22)
[2017-11-16] MEDS ORDERED: Budesonide Neb 0.25 MG/2 ML IH PRN (17:22)
[2017-11-16] MEDS ORDERED: Melatonin 3 MG TABLET PO PRN (17:22)
[2017-11-16] MEDS ORDERED: Albuterol 2.5 MG/3 ML NEBULIZER IH PRN (17:22)
[2017-11-16] MEDS ORDERED: 0.9 % Sodium Chloride 1,000 ML IVC SCH (17:45)
--- NOTE | 2017-11-16 17:48 | Internal Med History&Physical ---
Date of Encounter: 11/16/17 Time of Encounter: 17:30 Assessment and Plan (1) Sepsis Current visit: Yes Status: Suspected Patient presenting with sepsis with fever, tachycardia and lactic acidosis with possible acute urinary tract infection. We will treat with ceftriaxone intravenously. Follow urine and blood cultures. Monitor vital signs. Trend lactic acid. Sepsis orders have been placed. Qualifiers: Sepsis type: Escherichia coli Qualified Code(s): A41.51 - Sepsis due to Escherichia coli [E. coli] (2) Anemia Current visit: Yes Status: Chronic Patient with history of anemia with baseline hemoglobin between 9 and 10. Currently hemoglobin levels her 8 .2. Monitor blood counts closely. Will check stool for occult blood. Qualifiers: Anemia type: other cause Other causes of anemia: other cause, not classified Qualified Code(s): D64.89 - Other specified anemias (3) Cerebral palsy Current visit: No Status: Chronic Qualifiers: Cerebral palsy type: unspecified type Qualified Code(s): G80.9 - Cerebral palsy, unspecified (4) COPD (chronic obstructive pulmonary disease) Current visit: Yes Status: Chronic Not in acute exacerbation. Continue bronchodilators as needed. O2 supplementation. Qualifiers: COPD type: unspecified COPD Qualified Code(s): J44.9 - Chronic obstructive pulmonary disease, unspecified (5) Elevated troponin Current visit: Yes Status: Acute Patient has elevated troponin at 0.13. No chest pain. Will get 2-D echocardiogram to evaluate heart function. Trend troponins. Could be related to demand ischemia with underlying sepsis. Internal Medicine - H&P: HPI Chief complaint: Fever, back pain Admitted From: Emergency Dept Plans for Post Hospital Care: Home History of present illness: Mr. Gonsalez is a 72 year old male sent with history of cerebral palsy, colostomy , paraplegia presented to the ER with complaints of back pain and fever. According to his mother who is present at bedside and provided most of the history he had a fever with temperature 103 at home today. He was also complaining of back pain in the low back region which was worsening pain compared to his usual back pain. He has not had any dysuria or complaining of any nausea or vomiting or diarrhea. He has not complained of any abdominal pain either. No chest pain. No shortness of breath. Past Med Surg Social Fam HX - Past Medical History Attestation: Yes The following information was validated with the patient. Source: patient Medical history: asthma, COPD (Not oxygen dependent), GERD, GI bleed, kidney stones, other (Influenza A, asthma, nephrolithiasis, anxiety, cerebral palsy, small bowel obstruction status post colostomy, BPH, impaired fasting glucose, hypertension) Psychiatric history: anxiety, depression - Past Surgical History Surgical History: cholecystectomy, colostomy - Social History Smoking Status: Never smoker Smokeless Tobacco Status: No Alcohol use: none Drug use: none - Family History Sister Adopted: No Family Member Ethnicity: Non- Living Status: Still Living Hx Family Cardiac Disorders: Yes Hx Family Respiratory Disorders: Yes Hx Family Cancer: No Hx Family GI Disorders: No Hx Family Endocrine Disorder: Yes (DM) Hx Family Neuromuscular Disorders: No Hx Family Neurologic Disorders: No Hx Family HEENT Disorders: No Hx Family Autoimmune Disorders: No Internal Medicine - H&P: Meds Budesonide [Pulmicort] 0.5 mg IH BID PRN 08/03/16 [History] Cyanocobalamin (B-12) [Vitamin B12] 1,000 mcg PO DAILY 08/03/16 [History] HYDROcodone/Acet 5/325 mg [[place] 5-325 mg] 1 tab PO Q6H PRN 08/03/16 [History] HydrOXYzine 10 mg PO TID PRN 08/03/16 [History] Montelukast [Singulair] 10 mg PO DAILY 08/03/16 [History] Nystatin Cream [Mycostatin Cream] 1 appl TP BID PRN 08/03/16 [History] Sertraline [Zoloft] 25 mg PO DAILY 08/03/16 [History] Tamsulosin [Flomax] 0.8 mg PO DAILY #60 capsule 01/05/17 [Rx] Albuterol Sulfate 2.5 mg IH Q4H PRN 09/08/17 [History] Ferrous Sulfate [Iron] 325 mg PO DAILY 09/08/17 [History] Melatonin [Melatin] 3 mg PO HS PRN 09/08/17 [History] Metoprolol XL (24 HR) Succ [Toprol Xl] 50 mg PO DAILY 09/08/17 [History] Multivit-Min/FA/Lycopen/Lutein [Adults 50+ Multivitamin Tablet] 1 each PO DAILY 09/08/17 [History] Ranitidine HCl [Acid Supervisor Area] 150 mg PO BID 09/08/17 [History] Albuterol Sulfate [Albuterol Inhaler] 2 puff IH Q4HR PRN 10/16/17 [History] Fluticasone Propionate Nasal [Flonase] 1 spr NS DAILY PRN 10/18/17 [History] Acetaminophen [Tylenol] 650 mg PO Q4HR PRN tablet 10/21/17 [Rx] Omeprazole [PriLOSEC] 40 mg PO BID #60 cap 10/21/17 [Rx] Ondansetron ODT [Zofran ODT] 4 mg SL Q8HR PRN 11/16/17 [History] 3 Allergy/AdvReac Type Severity Reaction Status Date / Time Sulfa (Sulfonamide Allergy Hives Verified 11/08/17 10:16 Antibiotics) All Systems PM: A 10-system review of systems was performed and is negative for pertinent findings except as documented above in the HPI. - Constitutional Constitutional: fever(s), no chills, no night sweats - EENT Eyes: no change in vision, no discharge, no pain, no photophobia Ears: no ear discharge, no ear pain, no tinnitus Nose, mouth and throat: no dysphagia, no nasal discharge, no neck pain, no sore throat - Cardiovascular Cardiovascular ROS IM: no chest pain, no diaphoresis, no dyspnea, no lightheadedness, no palpitations, no syncope - Respiratory Respiratory: no cough, no dyspnea, no wheezing, no excessive phlegm production - Gastrointestinal Gastrointestinal: no abdominal pain, no diarrhea, no hematemesis, no hematochezia, no melena, no nausea, no vomiting - Musculoskeletal Musculoskeletal ROS IM: no numbness, no tingling - Integumentary Integumentary IM: no rash, no unusual bruising - Neurological Neurological ROS: no confusion, no convulsions, no focal weakness, no numbness, no tingling, no tremor(s) - Hematologic/Lymphatic Hematologic/Lymphatic: no easy bruising - Constitutional Vitals: Temp Pulse Resp BP Pulse Ox 99.3 F 104 16 105/73 96 11/16/17 15:51 11/16/17 15:51 11/16/17 15:51 11/16/17 15:51 11/16/17 15:51 General appearance: Present: cooperative, A&O X 1, mild distress, pleasant - Neck Neck exam general surgery: Present: supple, trachea midline. Absent: lymphadenopathy - Respiratory Respiratory exam: Present: CTAB. Absent: accessory muscle use, rales, rhonchi, wheezes - Cardiovascular Cardiovascular exam: Present: RRR, +S1, +S2. Absent: diastolic murmur, gallop, rubs, systolic murmur - GI/Abdominal GI/Abdominal exam: Present: normal bowel sounds, soft, no peritoneal signs. Absent: distended, tenderness Additional comments: Colostomy bag in place with stools. - Extremities Exam Extremities exam: Present: warm, radial pulses palpable and symmetrical. Absent : calf tenderness, cyanotic, pedal edema - Neurological Exam Neurological exam: Present: alert. Absent: facial droop, speech deficit Additional comments: cerebral palsy - Skin Skin exam: Present: dry, intact Internal Med - H&P Results - Labs Labs: CBC 10.6, hemoglobin 8.2 (baseline 9) lactic acid 3.7, troponin 0.13, sodium 138 , chloride 108, bicarbonate 19 - Impressions Etiology of the abdomen and pelvis shows no acute intra-abdominal process. Chest x-ray shows no acute infiltrate.
[2017-11-16] MEDS ORDERED: cefTRIAXone 2,000 MG in Water for inj. (sterile) 20 ML 20 ML IVP SCH (18:00)
[2017-11-16 18:10] LABS: Basophils % 0.3 %; Eosinophils % 0.2 %; Hematocrit 25.6 % (37.5-50.1); Hemoglobin 8.1 g/dL (12.9-16.9); Immature Granulocytes % 0.6 % (0-4); Lymphocytes # 0.7 K/mcL (0.6-4.6); Lymphocytes % 5.9 %; Mean Corpuscular HGB Conc 31.6 g/dL (31.6-35.5); Mean Corpuscular Hemoglobin 27.4 pg (28.0-33.3); Mean Corpuscular Volume 86.5 fL (83.0-100.0); Mean Platelet Volume 9.6 fL (9.4-12.4); Monocytes # 0.6 K/mcL (0.0-1.3); Monocytes % 4.6 %; Platelet Count 200 K/mcL (140-400); Red Blood Count 2.96 M/mcL (4.19-5.50); Red Cell Distribution Width 15.8 % (11.5-14.5); Segmented Neutrophils % 88.4 %
[2017-11-16 18:15] LABS: INR 1.3; Prothrombin Time 13.7 Seconds (9.4-12.1)
[2017-11-16 18:18] LABS: Activated Partial Thrombo Time 29.3 Seconds (26.0-36.0)
[2017-11-16 18:24] LABS: Alanine Aminotransferase 8 Units/L (7-52); Albumin 3.5 g/dL (3.5-5.7); Albumin/Globulin Ratio 1.6 (1.1-2.2); Alkaline Phosphatase 66 Units/L (34-104); Aspartate Amino Transferase 18 Units/L (13-39); BUN/Creatinine Ratio 12 (6-26); Bilirubin,Direct 0.2 mg/dL (0.0-0.2); Bilirubin,Indirect 0.5 mg/dL (0.0-1.2); Bilirubin,Total 0.7 mg/dL (0.3-1.0); Blood Urea Nitrogen 9 mg/dL (8-23); Calcium 8.7 mg/dL (8.6-10.3); Carbon Dioxide 25 mEq/L (23-29); Chloride 111 mEq/L (98-107); Globulin 2.2 g/dL (2.4-3.5); Glucose 101 mg/dL (70-105); Osmolality,Calculated 289 (280-300); Potassium 4.4 mEq/L (3.5-5.1); Sodium 140 mEq/L (136-145); Total Protein 5.7 g/dL (6.4-8.9); eGFR For African Americans > 60 (> 60); eGFR For Non-African Americans > 60 (> 60)
[2017-11-16] MEDS: D5% in 0.45% NACL 1,000 ML IVC SCH (19:22)
[2017-11-16] MEDS: Acetaminophen 325 MG TABLET PO PRN (20:32)
[2017-11-16] MEDS: Famotidine 20 MG TABLET PO SCH (20:33)
[2017-11-16] MEDS: *HR* HYDROcodone/Acet 5/325 mg TABLET PO PRN (21:54)
[2017-11-17 00:38] LABS: Basophils % 0.4 %; Eosinophils % 0.3 %; Hematocrit 23.6 % (37.5-50.1); Hemoglobin 7.5 g/dL (12.9-16.9); Immature Granulocytes % 0.4 % (0-4); Immature Platelets 2.2 % (1.1-6.1); Lymphocytes # 0.4 K/mcL (0.6-4.6); Mean Corpuscular HGB Conc 31.8 g/dL (31.6-35.5); Mean Corpuscular Hemoglobin 27.3 pg (28.0-33.3); Mean Corpuscular Volume 85.8 fL (83.0-100.0); Mean Platelet Volume 9.7 fL (9.4-12.4); Monocytes # 0.4 K/mcL (0.0-1.3); Monocytes % 5.1 %; Neutrophils # 6.1 K/mcL (1.6-8.9); Platelet Count 175 K/mcL (140-400); Red Blood Count 2.75 M/mcL (4.19-5.50); Red Cell Distribution Width 15.8 % (11.5-14.5); Segmented Neutrophils % 87.8 %
[2017-11-17 01:10] LABS: BUN/Creatinine Ratio 15 (6-26); Blood Urea Nitrogen 10 mg/dL (8-23); Calcium 7.9 mg/dL (8.6-10.3); Carbon Dioxide 23 mEq/L (23-29); Chloride 111 mEq/L (98-107); Glucose 117 mg/dL (70-105); Osmolality,Calculated 290 (280-300); Potassium 3.3 mEq/L (3.5-5.1); Sodium 140 mEq/L (136-145); eGFR For African Americans > 60 (> 60); eGFR For Non-African Americans > 60 (> 60)
[2017-11-17] MEDS: Acetaminophen 325 MG TABLET PO PRN ×3 (04:14→22:43)
[2017-11-17] MEDS ORDERED: Potassium Chloride 40 MEQ, Lidocaine 1% 2 ML in D5% in Water 500 ML IVPB ONE (06:22)
[2017-11-17 06:46] LABS: Magnesium 1.8 mg/dL (1.6-2.6)
[2017-11-17] MEDS ORDERED: *HR* Enoxaparin 60 MG/0.6 ML SYRINGE SQ SCH (08:45)
[2017-11-17] MEDS: Famotidine 20 MG TABLET PO SCH ×2 (09:30→22:43)
[2017-11-17] MEDS: Multivit/Ca/Min/Fe/FA 1 TAB TABLET PO SCH (09:31)
[2017-11-17] MEDS: Cyanocobalamin (B-12) 1,000 MCG TABLET PO SCH (09:31)
[2017-11-17] MEDS: Metoprolol XL (24 HR) Succ 50 MG TAB.ER.24H PO SCH (09:32)
--- NOTE | 2017-11-17 10:42 | Cardiology Consult Note ---
Addendum entered and electronically signed by Lashell Couch CNP 11/17/17 12: 42: Repeat troponin 1.24. Denies chest pain. Patient is being transfused with PRBC for anemia. Anticoagulation seems contraindicated with anemia requiring transfusion, recent stool positive OB. Will repeat troponin in am. Currently not a candidate for invasive cardiac work up due to worsening anemia, requiring transfusions. TTE with LVEF preserved. Original Note: Date of Encounter: 11/17/17 Time of Encounter: 09:00 Assessment and Plan (1) Sepsis Current Visit: No Status: Suspected Per cardiology: -Admitted with sepsis, suspected due to UTI. -ON IV ATB. -Management per primary service. Qualifiers: Sepsis type: Escherichia coli Qualified Code(s): A41.51 - Sepsis due to Escherichia coli [E. coli] (2) Anemia Current Visit: No Status: Chronic Per cardiology: -Hemoglobin today 7.5. -Recent GI work up for anemia. -PRBC tranfusion ordered per primary service. -Management per primary service. Qualifiers: Anemia type: other cause Other causes of anemia: other cause, not classified Qualified Code(s): D64.89 - Other specified anemias (3) Elevated troponin Current Visit: No Status: Acute Per cardiology: -Troponins 0.13, 0.23, 0.23, 0.65. Troponins somewhat flat in the setting of sepsis, fever, anemia. -Denies chest pain. -ECG with one beat of ST depression noted in lateral leads. -TTE pending. -On therapeutic lovenox, however now with worsening anemia and PRBC transfusion ordered per primary team. -On beta agnieszka. -DO not suspect NSTEMI, suspect demand ischemia related to above. NO cardiac rehab warranted -Will stop lovenox due to worsening anema, PRBC transfusion. -Will start statin, ideally would be on ASA if able to tolerate from bleeding standpoint. -Will repeat ECG. -Will repeat troponin. -Further recommendations pending TTE. Discussion w patient/family: The assessment and plan as outlined above was discussed with the patient and/or family members who expressed understanding and agreement. All questions were answered. Thank you for involving us in the care of your patient. Please call with any questions. Discussed and reviewed with . History of Present Illness Consult date: 11/17/17 Requesting physician: Risa Horner Consult reason: elevated troponin Chief complaint: shortness of breath History of present illness: Mr. Gonsalez is a 72 year old male with a relevant past medical history of cerebal palsy, HTN, asthma, COPD, GERD. Patient presented to [facility] with complaints of shortness of breath. Patient has cerebal palsy and is cared for by family members. Family member states she noticed was more short of breath and more fatigued than usual, so she brought patient to ER. Patient diagnosed with sepsis thought to be related to UTI. Cardiology has been asked to see and evaluate patient due to elevated troponins. Patient denies chest pain. Patient and family member deny previous cardiac history. Past Med Surg Social Fam HX - Past Medical History Attestation: Yes The following information was validated with the patient. Source: patient, old records reviewed, obtained from family Medical history: asthma, COPD, GERD, GI bleed, kidney stones, other Psychiatric history: anxiety, depression - Past Surgical History Surgical History: cholecystectomy, colostomy - Social History Smoking Status: Never smoker Smokeless Tobacco Status: No Alcohol use: none Drug use: none - Family History Sister Adopted: No Family Member Ethnicity: Non- Living Status: Still Living Hx Family Cardiac Disorders: Yes Hx Family Respiratory Disorders: Yes Hx Family Cancer: No Hx Family GI Disorders: No Hx Family Endocrine Disorder: Yes (DM) Hx Family Neuromuscular Disorders: No Hx Family Neurologic Disorders: No Hx Family HEENT Disorders: No Hx Family Autoimmune Disorders: No Medications and Allergies Budesonide [Pulmicort] 0.5 mg IH BID PRN 08/03/16 [History] Cyanocobalamin (B-12) [Vitamin B12] 1,000 mcg PO DAILY 08/03/16 [History] HYDROcodone/Acet 5/325 mg [Richmond 5-325 mg] 1 tab PO Q6H PRN 08/03/16 [History] HydrOXYzine 10 mg PO TID PRN 08/03/16 [History] Montelukast [Singulair] 10 mg PO DAILY 08/03/16 [History] Nystatin Cream [Mycostatin Cream] 1 appl TP BID PRN 08/03/16 [History] Sertraline [Zoloft] 25 mg PO DAILY 08/03/16 [History] Tamsulosin [Flomax] 0.8 mg PO DAILY #60 capsule 01/05/17 [Rx] Albuterol Sulfate 2.5 mg IH Q4H PRN 09/08/17 [History] Ferrous Sulfate [Iron] 325 mg PO DAILY 09/08/17 [History] Melatonin [Melatin] 3 mg PO HS PRN 09/08/17 [History] Metoprolol XL (24 HR) Succ [Toprol Xl] 50 mg PO DAILY 09/08/17 [History] Multivit-Min/FA/Lycopen/Lutein [Adults 50+ Multivitamin Tablet] 1 each PO DAILY 09/08/17 [History] Ranitidine HCl [Acid Metal Box Maker] 150 mg PO BID 09/08/17 [History] Albuterol Sulfate [Albuterol Inhaler] 2 puff IH Q4HR PRN 10/16/17 [History] Fluticasone Propionate Nasal [Flonase] 1 spr NS DAILY PRN 10/18/17 [History] Acetaminophen [Tylenol] 650 mg PO Q4HR PRN tablet 10/21/17 [Rx] Omeprazole [PriLOSEC] 40 mg PO BID #60 cap 10/21/17 [Rx] Ondansetron ODT [Zofran ODT] 4 mg SL Q8HR PRN 11/16/17 [History] 3 Allergy/AdvReac Type Severity Reaction Status Date / Time Sulfa (Sulfonamide Allergy Hives Verified 11/08/17 10:16 Antibiotics) All Systems Review: A 10-system review of systems was performed and is negative for pertinent findings except as documented above in the HPI. - Constitutional Constitutional: fatigue, fever(s) - Cardiovascular Cardiovascular: as per HPI, dyspnea at rest Physical Examination Vital Signs, Last 4 Hours Temp Pulse Resp BP Pulse Ox 11/17/17 07:16 99.1 F 92 16 107/57 100 General: Conversant, No Apparent Distress HEENT: Atraumatic, Normocephaly, Mucus Membranes Moist Neck: No JVD, Normal carotid pulses Cardiac: Reg Rate and Rhythm, Normal S1 and S2, No Murmur Lungs: Normal Breath Sounds, No Wheeze, Rales, Rhonchi Neuro: Alert and responsive, No focal deficits noted Abdomen: Soft, Non-Tender Skin: No rashes noted on visualized skin Musculoskeletal: No Chest Wall Tenderness Extremities: No Clubbing, No Cyanosis, No Edema, Normal Pulses, Other (Foot drop noted. ) Results 11/17/17 00:11 11/17/17 00:11 Lab Results Active Medications Acetaminophen (Tylenol) 650 mg PO Q6HR PRN PRN Reason: Mild Pain/Fever Stop: 05/18/18 17:20 Last Admin: 11/17/17 04:14 Dose: 650 mg Hydrocodone Bitart/Acetaminophen (Richmond 5-325 Mg) 1 tab PO Q6H PRN PRN Reason: Pain Stop: 05/18/18 17:23 Last Admin: 11/16/17 21:54 Dose: 1 tab Albuterol Sulfate (Proventil Neb) 2.5 mg IH Q4H PRN PRN Reason: Dyspnea Aspirin (Aspirin Ec) 81 mg PO DAILY [facility] Stop: 05/19/18 10:46 Atorvastatin Calcium (Lipitor) 40 mg PO HS [facility] Stop: 05/19/18 21:01 Budesonide (Pulmicort Neb) 0.5 mg IH BID PRN PRN Reason: Dyspnea Stop: 05/18/18 17:23 Cyanocobalamin (Vitamin B12) 1,000 mcg PO DAILY [facility] Stop: 05/19/18 09:01 Last Admin: 11/17/17 09:31 Dose: 1,000 mcg Enoxaparin Sodium (Lovenox) 60 mg 1 mg/kg (60 mg) SQ Q12HR [facility] PRN Reason: Protocol Stop: 05/19/18 08:46 Famotidine (Pepcid) 20 mg PO BID [facility] Stop: 05/18/18 21:01 Last Admin: 11/17/17 09:30 Dose: 20 mg Ferrous Sulfate (Ferrous Sulfate) 325 mg PO DAILY [facility] Stop: 05/19/18 09:01 Last Admin: 11/17/17 09:30 Dose: 325 mg Fluticasone Propionate (Flonase) 50 mcg NS DAILY PRN; Protocol PRN Reason: Allergy Symptoms Stop: 05/18/18 17:23 Hydroxyzine HCl (Hydroxyzine) 10 mg PO TID PRN PRN Reason: Anxiety Stop: 05/18/18 17:23 Dextrose/Sodium Chloride (D5% And 0.45% Nacl 1000 Ml Bag) 1,000 mls @ 75 mls/ hr IVC .[id number] [facility] Stop: 05/18/18 18:01 Last Admin: 11/16/17 19:22 Dose: 75 mls/hr Piperacillin Sod/Tazobactam (Sod 3.375 gm/ Sodium Chloride) 100 mls @ 25 mls/ hr IVPB Q8H [facility] Stop: 05/19/18 09:01 Last Admin: 11/17/17 09:28 Dose: 25 mls/hr Melatonin (Melatonin) 3 mg PO HS PRN PRN Reason: Sleep Stop: 05/18/18 17:23 Metoprolol Succinate (Toprol Xl) 50 mg PO DAILY [facility] Stop: 05/19/18 09:01 Last Admin: 11/17/17 09:32 Dose: 50 mg Montelukast Sodium (Singulair) 10 mg PO DAILY [facility] Stop: 05/19/18 09:01 Last Admin: 11/17/17 09:30 Dose: 10 mg Multivitamins/Calcium (Thera M Plus) 1 tab PO DAILY [facility] Stop: 05/19/18 09:01 Last Admin: 11/17/17 09:31 Dose: 1 tab Naloxone HCl (Narcan) 0.4 mg IVP Q2MIN PRN PRN Reason: SEE COMMENTS Stop: 05/18/18 17:20 Omeprazole (Prilosec) 40 mg PO BID [facility] Stop: 05/18/18 21:01 Last Admin: 11/17/17 09:31 Dose: 40 mg Ondansetron HCl (Zofran Odt) 4 mg SL Q8HR PRN PRN Reason: Nausea Stop: 05/18/18 17:23 Sertraline HCl (Zoloft) 25 mg PO DAILY [facility] Stop: 05/19/18 09:01 Last Admin: 11/17/17 09:31 Dose: 25 mg Tamsulosin HCl (Flomax) 0.8 mg PO DAILY [facility] PRN Reason: Protocol Stop: 05/19/18 09:01 Last Admin: 11/17/17 09:29 Dose: 0.8 mg Laboratory Tests 10/19/17 10/21/17 11/08/17 03:53 05:29 10:48 WBC Hgb 6.6 L 9.5 L 11.0 L Creatinine Troponin I 11/16/17 11/16/17 11/16/17 12:05 17:56 17:56 WBC 12.5 H Hgb 8.1 L Creatinine Troponin I 0.13 H* 0.23 H* 11/17/17 11/17/17 11/17/17 00:11 00:11 00:11 WBC 6.9 Hgb 7.5 L Creatinine 0.68 L Troponin I 0.23 H* 11/17/17 05:00 WBC Hgb Creatinine Troponin I 0.65 H* - Imaging and Cardiology Chest Xray: report reviewed Echo: pending - EKG Interpretation EKG results cardiology: personally reviewed (ECG with ST, one beat of ST depression noted in lateral leads.), other (Telemetry reviewed with average HR previous 12 hours noted to be 111, ST. PACs and PVCs noted.) Consult Discharge Plan - Plan Referrals: Barbra Arrieta, TIRE CLASSIFIER [Primary Care Provider] -
[2017-11-17] MEDS ORDERED: Aspirin Enteric Coated 81 MG Tablet PO SCH (10:45)
[2017-11-17] MEDS: *HR* HYDROcodone/Acet 5/325 mg TABLET PO PRN (11:24)
--- NOTE | 2017-11-17 12:38 | Electrocardiograph Report ---
[place] [id number] Test Date: 2017-11-17 Pat Name: Jose F Gonsalez Department: 111 Room: 2NE24 Gender: M Operating Room Aide: NOAH : 1945 Requested By: Dylan Ybarra Order Number: [id number] Reading MD: Mei Granda Measurements Intervals [employer] Rate: 112 P: 128 AR: 160 QRS: 20 QRSD: 85 T: 34 QT: 356 QTc: 422 Interpretive Statements SINUS TACHYCARDIA WITH OCCASIONAL ECTOPIC PREMATURE COMPLEXES MODERATE ST DEPRESSION Electronically Signed On 11-17-2017 12:37:05 EST by Mei Granda
[2017-11-17] MEDS ORDERED: 0.9 % Sodium Chloride 500 ML ONE (13:51)
--- NOTE | 2017-11-17 16:55 | Internal Med Progress Note ---
Date of Encounter: 11/17/17 Time of Encounter: 16:55 - Assessment and plan (1) Sepsis Current Visit: Yes Status: Acute Assessment and plan: Blood cultures growing gram-negative bacteria likely Klebsiella. Antibiotic has been changed to Zosyn. Will continue. Await final culture and sensitivity results. Qualifiers: Sepsis type: sepsis due to unspecified organism Qualified Code(s): A41.9 - Sepsis, unspecified organism (2) Anemia Current Visit: Yes Status: Chronic Assessment and plan: Acute on chronic anemia. Present on admission. Hemoglobin level at 7.5 today. Etiology uncertain. Reviewing patient's labs, his had normal vitamin B12, folic acid and iron levels. Could be related to chronic disease. Qualifiers: Anemia type: other cause Other causes of anemia: chronic disease, other Qualified Code(s): D63.8 - Anemia in other chronic diseases classified elsewhere (3) Cerebral palsy Current Visit: Yes Status: Chronic Assessment and plan: Continue supportive care. Frequent turning to prevent decubitus ulcers. Qualifiers: Cerebral palsy type: unspecified type Qualified Code(s): G80.9 - Cerebral palsy, unspecified (4) COPD (chronic obstructive pulmonary disease) Current Visit: Yes Status: Chronic Assessment and plan: Chronic. Not in acute exacerbation Qualifiers: COPD type: unspecified COPD Qualified Code(s): J44.9 - Chronic obstructive pulmonary disease, unspecified (5) Elevated troponin Current Visit: Yes Status: Acute Assessment and plan: Patient has elevated troponin. Peak 1.23. Cardiology was consulted. Patient was started on Lovenox initially but given his decline in hemoglobin count, this was stopped. Cardiology does not recommend any further evaluation at this time besides 2-D echocardiogram. EF of 65% per echo - Subjective Interval history: Patient continues to have chronic back pain. Denies any other new complaints at this time. Blood pressure has been running low. No palpitations. No dizziness. - Constitutional Vitals: Temp Pulse Resp BP Pulse Ox 98.5 F 85 16 76/41 100 11/17/17 15:51 11/17/17 15:51 11/17/17 15:51 11/17/17 15:51 11/17/17 15:51 General appearance: Present: cooperative, A&O X 1, mild distress, pleasant Exam: Patient with cerebral palsy - Neck Neck exam general surgery: Present: supple, trachea midline. Absent: lymphadenopathy - Respiratory Respiratory exam: Present: CTAB. Absent: accessory muscle use, rales, rhonchi, wheezes - Cardiovascular Cardiovascular exam: Present: RRR, +S1, +S2. Absent: diastolic murmur, gallop, rubs, systolic murmur - GI/Abdominal GI/Abdominal exam: Present: normal bowel sounds, soft, no peritoneal signs. Absent: distended, tenderness - Extremities Exam Extremities exam: Present: warm, radial pulses palpable and symmetrical. Absent : calf tenderness, cyanotic, pedal edema - Neurological Exam Neurological exam: Present: alert, no focal deficits. Absent: facial droop, speech deficit - Skin Skin exam: Present: dry, intact Internal Medicine: Result - Labs CBC & Chem 7: 11/18/17 06:10 11/18/17 06:10 Labs: Short CBC 11/16/17 11/17/17 Range/Units 17:56 00:11 WBC 12.5 H 6.9 (4.3-11.1) K/mcL Hgb 8.1 L 7.5 L (12.9-16.9) g/dL Hct 25.6 L 23.6 L (37.5-50.1) % Plt Count 200 175 (140-400) K/mcL Neutrophils # 11.0 H 6.1 (1.6-8.9) K/mcL BMP 11/16/17 11/17/17 17:56 00:11 Sodium 140 140 Potassium 4.4 3.3 L Chloride 111 H 111 H Carbon Dioxide 25 23 BUN 9 10 Creatinine 0.73 0.68 L Glucose 101 117 H Calcium 8.7 7.9 L Cardiac Enzymes 11/16/17 11/17/17 11/17/17 Range/Units 17:56 00:11 05:00 Troponin I 0.23 H* 0.23 H* 0.65 H* (< 0.04) ng/mL 11/17/17 Range/Units 09:47 Troponin I 1.23 H* (< 0.04) ng/mL Liver Function 11/16/17 Range/Units 17:56 Total Bilirubin 0.7 (0.3-1.0) mg/dL Direct Bilirubin 0.2 (0.0-0.2) mg/dL AST 18 (13-39) Units/L ALT 8 (7-52) Units/L Alkaline Phosphatase 66 (34-104) Units/L Albumin 3.5 (3.5-5.7) g/dL - ABG Interpretation ABG results: PT/INR, D-dimer PT 13.7 Seconds (9.4-12.1) H 11/16/17 17:56 - Impressions Impressions Echocardiogram 11/17/17 18:00 Impressions: Technically sub-optimal due to poor echocardiographic windows. LVEF 65%. Not all LV segments were well visualized, but overall LVEF is normal. Normal LV chamber size and wall thickness. Mild left ventricular diastolic dysfunction. Normal right ventricular structure and function. No evidence of pulmonary hypertension identified. No obvious significant valvular dysfunction. Findings: Study Quality * Technically sub-optimal due to poor echocardiographic windows. ECG Findings * Sinus tachycardia. Left Ventricle * LVEF 65%. Not all LV segments were well visualized, but overall LVEF is normal. * Normal LV chamber size and wall thickness. * Mild left ventricular diastolic dysfunction. Right Ventricle * Normal right ventricular structure and function. Left Atrium * Normal left atrial size. Right Atrium * Grossly normal right atrial size. Interatrial Septum * Interatrial septum not well evaluated. Aortic Valve * Aortic valve not well visualized. * No aortic stenosis. * No aortic regurgitation. Mitral Valve * Normal mitral valve structure and function. * No mitral stenosis. * No mitral regurgitation. Tricuspid Valve * Normal tricuspid valve structure and function. * Trace tricuspid regurgitation. * No evidence of pulmonary hypertension identified. Pulmonic Valve * Pulmonic valve not well visualized. Aorta * Normally sized aortic root. Pericardium * The pericardium appears normal. IVC * The IVC is not well evaluated. Pulmonary Artery * Pulmonary artery not well visualized. Consult Discharge Plan - Plan Referrals: Barbra Arrieta, OILER BANDER [Primary Care Provider] -
[2017-11-17] MEDS: D5% in 0.45% NACL 1,000 ML IVC SCH (17:48)
[2017-11-17] MEDS ORDERED: 0.9 % Sodium Chloride 500 ML IVC ONE (19:43)
[2017-11-17] MEDS: Ondansetron ODT 4 MG TAB.RAPDIS SL PRN (21:06)
[2017-11-18 06:23] LABS: Eosinophils # 0.1 K/mcL (0.0-0.6); Eosinophils % 1.5 %; Hematocrit 27.3 % (37.5-50.1); Hemoglobin 8.6 g/dL (12.9-16.9); Immature Granulocytes % 0.5 % (0-4); Lymphocytes # 0.6 K/mcL (0.6-4.6); Lymphocytes % 14.6 %; Mean Corpuscular HGB Conc 31.5 g/dL (31.6-35.5); Mean Corpuscular Hemoglobin 27.3 pg (28.0-33.3); Mean Corpuscular Volume 86.7 fL (83.0-100.0); Monocytes # 0.4 K/mcL (0.0-1.3); Monocytes % 9.6 %; Neutrophils # 2.9 K/mcL (1.6-8.9); Platelet Count 145 K/mcL (140-400); Red Blood Count 3.15 M/mcL (4.19-5.50); Red Cell Distribution Width 15.4 % (11.5-14.5); Segmented Neutrophils % 72.8 %
[2017-11-18 06:43] LABS: BUN/Creatinine Ratio 16 (6-26); Blood Urea Nitrogen 11 mg/dL (8-23); Carbon Dioxide 23 mEq/L (23-29); Chloride 112 mEq/L (98-107); Glucose 114 mg/dL (70-105); Osmolality,Calculated 288 (280-300); Potassium 3.6 mEq/L (3.5-5.1); Sodium 139 mEq/L (136-145); eGFR For African Americans > 60 (> 60); eGFR For Non-African Americans > 60 (> 60)
--- NOTE | 2017-11-18 09:32 | Cardiology Progress Note ---
Date of Encounter: 11/18/17 Time of Encounter: 08:30 Assessment and Plan (1) Sepsis Current Visit: No Status: Suspected Per cardiology: -Admitted with sepsis, suspected due to UTI. -ON IV ATB. -Management per primary service. Qualifiers: Sepsis type: Escherichia coli Qualified Code(s): A41.51 - Sepsis due to Escherichia coli [E. coli] (2) Anemia Current Visit: No Status: Chronic Per cardiology: -Hemoglobin today 7.5, today 8.6. -Recent GI work up for anemia. -PRBC tranfusion ordered per primary service. -Management per primary service. Qualifiers: Anemia type: other cause Other causes of anemia: other cause, not classified Qualified Code(s): D64.89 - Other specified anemias (3) Elevated troponin Current Visit: No Status: Acute Per cardiology: -Troponins 0.13, 0.23, 0.23, 0.65, 1.23, 0.5. Troponins somewhat flat in the setting of sepsis, fever, anemia. -Denies chest pain. -ECG with one beat of ST depression noted in lateral leads. -TTE with LVEF 65%. -On beta agnieszka, statin. ASA on hold due to anemia requiring transfusions. -DO not suspect NSTEMI, suspect demand ischemia related to above. NO cardiac rehab warranted -Ideally would be on ASA if able to tolerate from bleeding standpoint. -Cardiology will sign off and will follow in outpatient setting. Follow up set. -Of note, patient is not a candidate for invasive cardiac work up due to anemia. Discussion w patient/family: The assessment and plan as outlined above was discussed with the patient and/or family members who expressed understanding and agreement. All questions were answered. Thank you for involving us in the care of your patient. Please call with any questions. Discussed and reviewed with . Subjective Principal diagnosis: sepsis Interval history: Patient denies chest pain this morning. Objective Vital Signs, Last 4 Hours Temp Pulse Resp BP Pulse Ox 11/18/17 07:32 97.8 F 98 15 115/61 100 11/18/17 05:36 98.1 F 100 20 113/62 94 General: Conversant, No Apparent Distress HEENT: Atraumatic, Normocephaly, Mucus Membranes Moist Neck: No JVD, Normal carotid pulses Cardiac: Reg Rate and Rhythm, Normal S1 and S2, No Murmur Lungs: Normal Breath Sounds, No Wheeze, Rales, Rhonchi Neuro: Alert and responsive, Other (Known cerebal palsy. Answers questions appropriately. ) Abdomen: Soft, Non-Tender Skin: No rashes noted on visualized skin Musculoskeletal: No Chest Wall Tenderness Extremities: No Clubbing, No Cyanosis, No Edema, Normal Pulses, Other ( Bilateral foot drop noted. ) Results 11/18/17 06:10 11/18/17 06:10 Lab Results Impressions Echocardiogram 11/17/17 18:00 Impressions: Technically sub-optimal due to poor echocardiographic windows. LVEF 65%. Not all LV segments were well visualized, but overall LVEF is normal. Normal LV chamber size and wall thickness. Mild left ventricular diastolic dysfunction. Normal right ventricular structure and function. No evidence of pulmonary hypertension identified. No obvious significant valvular dysfunction. Findings: Study Quality * Technically sub-optimal due to poor echocardiographic windows. ECG Findings * Sinus tachycardia. Left Ventricle * LVEF 65%. Not all LV segments were well visualized, but overall LVEF is normal. * Normal LV chamber size and wall thickness. * Mild left ventricular diastolic dysfunction. Right Ventricle * Normal right ventricular structure and function. Left Atrium * Normal left atrial size. Right Atrium * Grossly normal right atrial size. Interatrial Septum * Interatrial septum not well evaluated. Aortic Valve * Aortic valve not well visualized. * No aortic stenosis. * No aortic regurgitation. Mitral Valve * Normal mitral valve structure and function. * No mitral stenosis. * No mitral regurgitation. Tricuspid Valve * Normal tricuspid valve structure and function. * Trace tricuspid regurgitation. * No evidence of pulmonary hypertension identified. Pulmonic Valve * Pulmonic valve not well visualized. Aorta * Normally sized aortic root. Pericardium * The pericardium appears normal. IVC * The IVC is not well evaluated. Pulmonary Artery * Pulmonary artery not well visualized. Active Medications Acetaminophen (Tylenol) 650 mg PO Q6HR PRN PRN Reason: Mild Pain/Fever Stop: 05/18/18 17:20 Last Admin: 11/17/17 22:43 Dose: 650 mg Hydrocodone Bitart/Acetaminophen ([place] 5-325 Mg) 1 tab PO Q6H PRN PRN Reason: Pain Stop: 05/18/18 17:23 Last Admin: 11/17/17 11:24 Dose: 1 tab Albuterol Sulfate (Proventil Neb) 2.5 mg IH Q4H PRN PRN Reason: Dyspnea Aspirin (Aspirin Ec) 81 mg PO DAILY [facility] Stop: 05/19/18 10:46 Last Admin: 11/17/17 12:47 Dose: Not Given Atorvastatin Calcium (Lipitor) 40 mg PO HS [facility] Stop: 05/19/18 21:01 Last Admin: 11/17/17 22:43 Dose: 40 mg Budesonide (Pulmicort Neb) 0.5 mg IH BID PRN PRN Reason: Dyspnea Stop: 05/18/18 17:23 Cyanocobalamin (Vitamin B12) 1,000 mcg PO DAILY [facility] Stop: 05/19/18 09:01 Last Admin: 11/17/17 09:31 Dose: 1,000 mcg Famotidine (Pepcid) 20 mg PO BID [facility] Stop: 05/18/18 21:01 Last Admin: 11/17/17 22:43 Dose: 20 mg Ferrous Sulfate (Ferrous Sulfate) 325 mg PO DAILY [facility] Stop: 05/19/18 09:01 Last Admin: 11/17/17 09:30 Dose: 325 mg Fluticasone Propionate (Flonase) 50 mcg NS DAILY PRN; Protocol PRN Reason: Allergy Symptoms Stop: 05/18/18 17:23 Hydroxyzine HCl (Hydroxyzine) 10 mg PO TID PRN PRN Reason: Anxiety Stop: 05/18/18 17:23 Dextrose/Sodium Chloride (D5% And 0.45% Nacl 1000 Ml Bag) 1,000 mls @ 75 mls/ hr IVC .[id number] [facility] Stop: 05/18/18 18:01 Last Admin: 11/17/17 17:48 Dose: 75 mls/hr Piperacillin Sod/Tazobactam (Sod 3.375 gm/ Sodium Chloride) 100 mls @ 25 mls/ hr IVPB Q8H [facility] Stop: 05/19/18 09:01 Last Admin: 11/18/17 01:17 Dose: 25 mls/hr Melatonin (Melatonin) 3 mg PO HS PRN PRN Reason: Sleep Stop: 05/18/18 17:23 Last Admin: 11/17/17 22:43 Dose: 3 mg Metoprolol Succinate (Toprol Xl) 50 mg PO DAILY [facility] Stop: 05/19/18 09:01 Last Admin: 11/17/17 09:32 Dose: 50 mg Montelukast Sodium (Singulair) 10 mg PO DAILY [facility] Stop: 05/19/18 09:01 Last Admin: 11/17/17 09:30 Dose: 10 mg Multivitamins/Calcium (Thera M Plus) 1 tab PO DAILY [facility] Stop: 05/19/18 09:01 Last Admin: 11/17/17 09:31 Dose: 1 tab Naloxone HCl (Narcan) 0.4 mg IVP Q2MIN PRN PRN Reason: SEE COMMENTS Stop: 05/18/18 17:20 Omeprazole (Prilosec) 40 mg PO BID [facility] Stop: 05/18/18 21:01 Last Admin: 11/17/17 22:43 Dose: 40 mg Ondansetron HCl (Zofran Odt) 4 mg SL Q8HR PRN PRN Reason: Nausea Stop: 05/18/18 17:23 Last Admin: 11/17/17 21:06 Dose: 4 mg Sertraline HCl (Zoloft) 25 mg PO DAILY [facility] Stop: 05/19/18 09:01 Last Admin: 11/17/17 09:31 Dose: 25 mg Tamsulosin HCl (Flomax) 0.8 mg PO DAILY [facility] PRN Reason: Protocol Stop: 05/19/18 09:01 Last Admin: 11/17/17 09:29 Dose: 0.8 mg Laboratory Tests 11/16/17 11/16/17 11/17/17 12:05 17:56 00:11 Hgb Creatinine Troponin I 0.13 H* 0.23 H* 0.23 H* 11/17/17 11/17/17 11/18/17 05:00 09:47 06:10 Hgb Creatinine Troponin I 0.65 H* 1.23 H* 0.50 H* 11/18/17 11/18/17 06:10 06:10 Hgb 8.6 L Creatinine 0.70 Troponin I - Imaging and Cardiology Chest Xray: report reviewed Echo: report reviewed - EKG Interpretation EKG results cardiology: other (Telemetry reviewed with average HR previous 12 hours noted to be 93, SR. PVCs and PACs noted.) Consult Discharge Plan - Plan Referrals: Barbra Arrieta, AUTO SERVICE DISPATCHER [Primary Care Provider] -
[2017-11-18] MEDS: Multivit/Ca/Min/Fe/FA 1 TAB TABLET PO SCH (09:59)
[2017-11-18] MEDS: Famotidine 20 MG TABLET PO SCH ×2 (10:00→22:57)
[2017-11-18] MEDS: Metoprolol XL (24 HR) Succ 50 MG TAB.ER.24H PO SCH (10:00)
[2017-11-18] MEDS: D5% in 0.45% NACL 1,000 ML IVC SCH (10:01)
[2017-11-18] MEDS: Cyanocobalamin (B-12) 1,000 MCG TABLET PO SCH (10:09)
--- NOTE | 2017-11-18 13:47 | Internal Med Progress Note ---
Date of Encounter: 11/18/17 Time of Encounter: 09:45 - Assessment and plan (1) Sepsis Current Visit: Yes Status: Acute Assessment and plan: Possibly with Klebsiella pneumoniae. Awaiting final culture results. Would repeat blood cultures to look for resolution of bacteremia. Continue Zosyn for now. Moderate risk for complications. Qualifiers: Sepsis type: sepsis due to unspecified organism Qualified Code(s): A41.9 - Sepsis, unspecified organism (2) Anemia Current Visit: Yes Status: Chronic Assessment and plan: Blood counts improved after transfusion. Will check iron profile, vitamin B12 and folic acid levels. Continue to monitor hemoglobin levels. Qualifiers: Anemia type: other cause Other causes of anemia: chronic disease, other Qualified Code(s): D63.8 - Anemia in other chronic diseases classified elsewhere (3) Cerebral palsy Current Visit: Yes Status: Chronic Qualifiers: Cerebral palsy type: unspecified type Qualified Code(s): G80.9 - Cerebral palsy, unspecified (4) COPD (chronic obstructive pulmonary disease) Current Visit: Yes Status: Chronic Assessment and plan: On bronchodilators as needed. Qualifiers: COPD type: unspecified COPD Qualified Code(s): J44.9 - Chronic obstructive pulmonary disease, unspecified (5) Elevated troponin Current Visit: Yes Status: Acute Assessment and plan: Trended down. Cardiology recommends outpatient follow-up. Aspirin when patient is able to take. We will check FOBT. If negative, will start patient on aspirin. - Subjective Interval history: Patient is doing much better today. No longer having low blood pressure. He is awake and alert. No new complaints besides his chronic back pain. He did have fever overnight with a MAXIMUM TEMPERATURE of 102.6. However since this morning he is had no further episodes of fever. - Constitutional Vitals: Temp Pulse Resp BP Pulse Ox 97.8 F 91 14 120/58 100 11/18/17 11:34 11/18/17 11:34 11/18/17 11:34 11/18/17 11:34 11/18/17 11:34 General appearance: Present: cooperative, A&O X 1, mild distress, pleasant - Respiratory Respiratory exam: Present: CTAB. Absent: accessory muscle use, rales, rhonchi, wheezes - Cardiovascular Cardiovascular exam: Present: RRR, +S1, +S2. Absent: diastolic murmur, gallop, rubs, systolic murmur - GI/Abdominal GI/Abdominal exam: Present: normal bowel sounds, soft, no peritoneal signs. Absent: distended, tenderness - Extremities Exam Extremities exam: Present: warm, radial pulses palpable and symmetrical. Absent : calf tenderness, cyanotic, pedal edema - Neurological Exam Neurological exam: Present: alert, no focal deficits. Absent: facial droop, speech deficit Internal Medicine: Result - Labs CBC & Chem 7: 11/18/17 06:10 11/18/17 06:10 Labs: Short CBC 11/18/17 Range/Units 06:10 WBC 4.0 L (4.3-11.1) K/mcL Hgb 8.6 L (12.9-16.9) g/dL Hct 27.3 L (37.5-50.1) % Plt Count 145 (140-400) K/mcL Neutrophils # 2.9 (1.6-8.9) K/mcL BMP 11/18/17 06:10 Sodium 139 Potassium 3.6 Chloride 112 H Carbon Dioxide 23 BUN 11 Creatinine 0.70 Glucose 114 H Calcium 8.0 L Cardiac Enzymes 11/18/17 Range/Units 06:10 Troponin I 0.50 H* (< 0.04) ng/mL - ABG Interpretation ABG results: PT/INR, D-dimer PT 13.7 Seconds (9.4-12.1) H 11/16/17 17:56 Consult Discharge Plan - Plan Referrals: Barbra Arrieta, SCHOOL BUS AIDE [Primary Care Provider] -
[2017-11-18] MEDS: *HR* Heparin 5,000 UNIT/ML VIAL SQ SCH (17:49)
[2017-11-19 04:52] LABS: Basophils % 0.6 %; Eosinophils # 0.1 K/mcL (0.0-0.6); Eosinophils % 3.9 %; Hemoglobin 8.2 g/dL (12.9-16.9); Immature Granulocytes % 0.3 % (0-4); Lymphocytes # 0.8 K/mcL (0.6-4.6); Lymphocytes % 24.9 %; Mean Corpuscular HGB Conc 32.8 g/dL (31.6-35.5); Mean Corpuscular Hemoglobin 27.3 pg (28.0-33.3); Mean Corpuscular Volume 83.3 fL (83.0-100.0); Mean Platelet Volume 9.6 fL (9.4-12.4); Monocytes # 0.5 K/mcL (0.0-1.3); Monocytes % 13.5 %; Neutrophils # 1.9 K/mcL (1.6-8.9); Platelet Count 141 K/mcL (140-400); Red Cell Distribution Width 15.2 % (11.5-14.5); Segmented Neutrophils % 56.8 %
[2017-11-19 05:18] LABS: Chloride 112 mEq/L (98-107); Potassium 3.1 mEq/L (3.5-5.1); Sodium 141 mEq/L (136-145)
[2017-11-19 05:37] LABS: % Iron Saturation 4 % (20-55); BUN/Creatinine Ratio 10 (6-26); Blood Urea Nitrogen 6 mg/dL (8-23); Calcium 7.9 mg/dL (8.6-10.3); Carbon Dioxide 24 mEq/L (23-29); Ferritin 53 ng/ml (20-250); Glucose 107 mg/dL (70-105); Iron 12 mcg/dL (65-175); Osmolality,Calculated 290 (280-300); Transferrin 220 mg/dL (203-362); eGFR For African Americans > 60 (> 60); eGFR For Non-African Americans > 60 (> 60)
[2017-11-19 05:37] LABS: Acinetobacter baumannii by PCR Not Detected (Not Detect); Candida albicans by PCR Not Detected (Not Detect); Candida glabrata by PCR Not Detected (Not Detect); Candida krusei by PCR Not Detected (Not Detect); Candida parapsilosis by PCR Not Detected (Not Detect); Candida tropicalis by PCR Not Detected (Not Detect); Enterococcus by PCR Not Detected (Not Detect); Escherichia coli by PCR Not Detected (Not Detect); Klebsiella oxytoca by PCR Not Detected (Not Detect); Klebsiella pneumoniae by PCR Not Detected (Not Detect); Pseudomonas aeruginosa by PCR Not Detected (Not Detect); Serratia marcescens by PCR Not Detected (Not Detect); Staphylococcus aureus by PCR Not Detected (Not Detect); Streptococcus agalactiae(B)PCR Not Detected (Not Detect); Streptococcus by PCR Not Detected (Not Detect); Streptococcus pneumoniae PCR Not Detected (Not Detect); Streptococcus pyogenes (A) PCR Not Detected (Not Detect); blaKPC Carbapenem-Resist Gene Not Detected (Not Detect); mecA Methicillin-Resist Gene ***DETECTED*** (Not Detect); vanA/B Vancomycin-Resist Genes Not Detected (Not Detect)
[2017-11-19] MEDS ORDERED: Vancomycin 1,000 MG in D5% in Water 250 ML IVPB ONE (05:37)
[2017-11-19 05:42] LABS: Folate 18.3 ng/mL (3.0-16.0)
[2017-11-19 05:58] LABS: Microcytosis Present (Not Present); Platelet Estimate Decreased (Normal)
[2017-11-19] MEDS: *HR* Heparin 5,000 UNIT/ML VIAL SQ SCH ×2 (06:32→17:29)
[2017-11-19] MEDS: Ondansetron ODT 4 MG TAB.RAPDIS SL PRN (07:47)
[2017-11-19] MEDS ORDERED: Sodium Ferric Gluconat/Sucrose 125 MG in 0.9 % Sodium Chloride 100 ML IVPB ONE (09:00)
[2017-11-19] MEDS: Cyanocobalamin (B-12) 1,000 MCG TABLET PO SCH (10:18)
[2017-11-19] MEDS: D5% in 0.45% NACL 1,000 ML IVC SCH (10:18)
[2017-11-19] MEDS: Multivit/Ca/Min/Fe/FA 1 TAB TABLET PO SCH (10:19)
[2017-11-19] MEDS: cefTRIAXone 2,000 MG in Water for inj. (sterile) 20 ML 20 ML IVP SCH (10:19)
[2017-11-19] MEDS: Metoprolol XL (24 HR) Succ 50 MG TAB.ER.24H PO SCH (10:19)
[2017-11-19] MEDS: Famotidine 20 MG TABLET PO SCH ×2 (10:19→20:25)
[2017-11-19] MEDS: *HR* HYDROcodone/Acet 5/325 mg TABLET PO PRN (14:29)
--- NOTE | 2017-11-19 15:55 | Internal Med Progress Note ---
Date of Encounter: 11/19/17 Time of Encounter: 15:55 - Assessment and plan (1) Sepsis Current Visit: Yes Status: Acute Assessment and plan: Initial set of blood cultures growing Klebsiella pneumoniae. Sensitivities to Rocephin. Will change antibiotic to Rocephin 2 g daily. One set of Blood culture from 11/18/17 positive for gram-positive cocci. We will repeat blood cultures. Could be contaminant but patient did receive 1 dose of vancomycin. As patient has been getting better and this blood culture may be a contaminant, will hold off on further doses of vancomycin. Await repeat culture results. Qualifiers: Sepsis type: sepsis due to unspecified organism Qualified Code(s): A41.9 - Sepsis, unspecified organism (2) Anemia Current Visit: Yes Status: Chronic Assessment and plan: Iron deficiency anemia. Most likely nutritional. Will give patient intravenous iron infusions. Qualifiers: Anemia type: iron deficiency Iron deficiency anemia type: inadequate dietary iron intake Qualified Code(s): D50.8 - Other iron deficiency anemias (3) Cerebral palsy Current Visit: Yes Status: Chronic Qualifiers: Cerebral palsy type: unspecified type Qualified Code(s): G80.9 - Cerebral palsy, unspecified (4) COPD (chronic obstructive pulmonary disease) Current Visit: Yes Status: Chronic Assessment and plan: Not in acute exacerbation. Continue bronchodilators. Qualifiers: COPD type: unspecified COPD Qualified Code(s): J44.9 - Chronic obstructive pulmonary disease, unspecified (5) Elevated troponin Current Visit: Yes Status: Acute Assessment and plan: No further cardiac workup planned. Continue aspirin. - Subjective Interval history: Patient is feeling much better today. No new episodes of fever overnight. Tolerating diet well. No new complaints at this time. - Constitutional Vitals: Temp Pulse Resp BP Pulse Ox 98.6 F 94 16 114/64 94 11/19/17 15:00 11/19/17 15:00 11/19/17 15:00 11/19/17 15:00 11/19/17 15:00 General appearance: Present: cooperative, A&O X 1, pleasant, no acute distress - Respiratory Respiratory exam: Present: CTAB. Absent: accessory muscle use, rales, rhonchi, wheezes - Cardiovascular Cardiovascular exam: Present: RRR, +S1, +S2. Absent: diastolic murmur, gallop, rubs, systolic murmur - GI/Abdominal GI/Abdominal exam: Present: normal bowel sounds, soft, no peritoneal signs. Absent: distended, tenderness - Extremities Exam Extremities exam: Present: warm, radial pulses palpable and symmetrical. Absent : calf tenderness, cyanotic, pedal edema - Neurological Exam Neurological exam: Present: alert, oriented X3, no focal deficits. Absent: facial droop, speech deficit - Skin Skin exam: Present: dry, intact Internal Medicine: Result - Labs CBC & Chem 7: 11/19/17 04:17 11/19/17 04:17 Labs: Short CBC 11/19/17 Range/Units 04:17 WBC 3.3 L (4.3-11.1) K/mcL Hgb 8.2 L (12.9-16.9) g/dL Hct 25.0 L (37.5-50.1) % Plt Count 141 (140-400) K/mcL Neutrophils # 1.9 (1.6-8.9) K/mcL BMP 11/19/17 04:17 Sodium 141 Potassium 3.1 L Chloride 112 H Carbon Dioxide 24 BUN 6 L Creatinine 0.60 L Glucose 107 H Calcium 7.9 L - ABG Interpretation ABG results: PT/INR, D-dimer PT 13.7 Seconds (9.4-12.1) H 11/16/17 17:56 Consult Discharge Plan - Plan Referrals: Barbra Arrieta, EILEEN [Primary Care Provider] -
[2017-11-20] MEDS: D5% in 0.45% NACL 1,000 ML IVC SCH ×2 (00:33→13:55)
[2017-11-20] MEDS: *HR* Heparin 5,000 UNIT/ML VIAL SQ SCH ×2 (05:17→17:06)
[2017-11-20] MEDS: Cyanocobalamin (B-12) 1,000 MCG TABLET PO SCH (08:46)
[2017-11-20] MEDS: Metoprolol XL (24 HR) Succ 50 MG TAB.ER.24H PO SCH (08:46)
[2017-11-20] MEDS: Famotidine 20 MG TABLET PO SCH ×2 (08:46→21:36)
[2017-11-20] MEDS: Multivit/Ca/Min/Fe/FA 1 TAB TABLET PO SCH (08:46)
[2017-11-20] MEDS: Ondansetron ODT 4 MG TAB.RAPDIS SL PRN (09:47)
[2017-11-20] MEDS: cefTRIAXone 2,000 MG in Water for inj. (sterile) 20 ML 20 ML IVP SCH (09:48)
[2017-11-20] MEDS: Sodium Ferric Gluconat/Sucrose 125 MG in 0.9 % Sodium Chloride 100 ML IVPB SCH (13:55)
--- NOTE | 2017-11-20 16:55 | Internal Med Progress Note ---
Date of Encounter: 11/20/17 Time of Encounter: 09:50 - Assessment and plan (1) Sepsis Current Visit: Yes Status: Acute Assessment and plan: Patient continues to improve. Repeat cultures have shown no growth so far. Sepsis likely due to Klebsiella pneumoniae. On IV ceftriaxone. One set of blood culture positive for gram-positive cocci. Likely contaminant. We will await final culture results. Qualifiers: Sepsis type: sepsis due to unspecified organism Qualified Code(s): A41.9 - Sepsis, unspecified organism (2) Anemia Current Visit: Yes Status: Chronic Assessment and plan: Chronic and stable. Hemoglobin 8.2. Continue iron replacement therapy. Qualifiers: Anemia type: iron deficiency Iron deficiency anemia type: inadequate dietary iron intake Qualified Code(s): D50.8 - Other iron deficiency anemias (3) Cerebral palsy Current Visit: Yes Status: Chronic Qualifiers: Cerebral palsy type: unspecified type Qualified Code(s): G80.9 - Cerebral palsy, unspecified (4) COPD (chronic obstructive pulmonary disease) Current Visit: Yes Status: Chronic Assessment and plan: Continue bronchodilators as needed. Not in acute exacerbation. Qualifiers: COPD type: unspecified COPD Qualified Code(s): J44.9 - Chronic obstructive pulmonary disease, unspecified (5) Elevated troponin Current Visit: Yes Status: Acute Assessment and plan: Medical management per cardiology recommendations. Continue aspirin, statin. - Subjective Interval history: Patient complains of nausea. Denies any chest pain or shortness of breath. No other complaints at this time. - Constitutional Vitals: Temp Pulse Resp BP Pulse Ox 98.6 F 76 17 136/67 96 11/20/17 15:14 11/20/17 15:14 11/20/17 15:14 11/20/17 15:14 11/20/17 15:14 General appearance: Present: cooperative, A&O X 1, pleasant, no acute distress - Neck Neck exam general surgery: Present: supple, trachea midline. Absent: lymphadenopathy - Respiratory Respiratory exam: Present: CTAB. Absent: accessory muscle use, rales, rhonchi, wheezes - Cardiovascular Cardiovascular exam: Present: RRR, +S1, +S2. Absent: diastolic murmur, gallop, rubs, systolic murmur - GI/Abdominal GI/Abdominal exam: Present: normal bowel sounds, soft, no peritoneal signs. Absent: distended, tenderness - Extremities Exam Extremities exam: Present: warm, radial pulses palpable and symmetrical. Absent : calf tenderness, cyanotic, pedal edema - Neurological Exam Neurological exam: Present: alert. Absent: facial droop, speech deficit - Skin Skin exam: Present: dry, intact Internal Medicine: Result - Labs CBC & Chem 7: 11/19/17 04:17 11/19/17 04:17 - ABG Interpretation ABG results: PT/INR, D-dimer PT 13.7 Seconds (9.4-12.1) H 11/16/17 17:56 Consult Discharge Plan - Plan Referrals: Barbra Arrieta, TELEPHONE INSTALLER [Primary Care Provider] -
[2017-11-21] MEDS: D5% in 0.45% NACL 1,000 ML IVC SCH (05:35)
[2017-11-21] MEDS: Acetaminophen 325 MG TABLET PO PRN (05:36)
[2017-11-21] MEDS: *HR* Heparin 5,000 UNIT/ML VIAL SQ SCH (05:37)
[2017-11-21 07:41] VITALS: BP 131/68
[2017-11-21] MEDS: Famotidine 20 MG TABLET PO SCH (08:54)
[2017-11-21] MEDS: cefTRIAXone 2,000 MG in Water for inj. (sterile) 20 ML 20 ML IVP SCH (08:54)
[2017-11-21] MEDS: Metoprolol XL (24 HR) Succ 50 MG TAB.ER.24H PO SCH (08:54)
[2017-11-21] MEDS: Multivit/Ca/Min/Fe/FA 1 TAB TABLET PO SCH (08:54)
[2017-11-21] MEDS: Cyanocobalamin (B-12) 1,000 MCG TABLET PO SCH (08:54)
[2017-11-21] MEDS: Sodium Ferric Gluconat/Sucrose 125 MG in 0.9 % Sodium Chloride 100 ML IVPB SCH (09:02)
--- NOTE | 2017-11-21 11:36 | Discharge Summary ---
Date of Encounter: 11/21/17 Time of Encounter: 11:34 - Discharge Diagnosis (1) Sepsis Priority: Primary Status: Acute Comments: due to Klebsiella Pneumoniae Qualifiers: Sepsis type: sepsis due to unspecified organism Qualified Code(s): A41.9 - Sepsis, unspecified organism (2) Anemia Priority: Secondary Status: Chronic Qualifiers: Anemia type: iron deficiency Iron deficiency anemia type: inadequate dietary iron intake Qualified Code(s): D50.8 - Other iron deficiency anemias (3) Cerebral palsy Priority: Secondary Status: Chronic Qualifiers: Cerebral palsy type: unspecified type Qualified Code(s): G80.9 - Cerebral palsy, unspecified (4) COPD (chronic obstructive pulmonary disease) Priority: Secondary Status: Chronic Qualifiers: COPD type: unspecified COPD Qualified Code(s): J44.9 - Chronic obstructive pulmonary disease, unspecified (5) Elevated troponin Priority: Secondary Status: Acute - Discharge Medications Prescriptions: Ferrous Sulfate [Iron] 325 mg PO BID #60 tablet levoFLOXacin [Levaquin] 750 mg PO DAILY #7 tablet Home Medications: Budesonide [Pulmicort] 0.5 mg IH BID PRN 08/03/16 [History] Cyanocobalamin (B-12) [Vitamin B12] 1,000 mcg PO DAILY 08/03/16 [History] HYDROcodone/Acet 5/325 mg [[place] 5-325 mg] 1 tab PO Q6H PRN 08/03/16 [History] HydrOXYzine 10 mg PO TID PRN 08/03/16 [History] Montelukast [Singulair] 10 mg PO DAILY 08/03/16 [History] Nystatin Cream [Mycostatin Cream] 1 appl TP BID PRN 08/03/16 [History] Sertraline [Zoloft] 25 mg PO DAILY 08/03/16 [History] Tamsulosin [Flomax] 0.8 mg PO DAILY #60 capsule 01/05/17 [Rx] Albuterol Sulfate 2.5 mg IH Q4H PRN 09/08/17 [History] Melatonin [Melatin] 3 mg PO HS PRN 09/08/17 [History] Metoprolol XL (24 HR) Succ [Toprol Xl] 50 mg PO DAILY 09/08/17 [History] Multivit-Min/FA/Lycopen/Lutein [Adults 50+ Multivitamin Tablet] 1 each PO DAILY 09/08/17 [History] Ranitidine HCl [Acid Steam Clean Machine Operator] 150 mg PO BID 09/08/17 [History] Albuterol Sulfate [Albuterol Inhaler] 2 puff IH Q4HR PRN 10/16/17 [History] Fluticasone Propionate Nasal [Flonase] 1 spr NS DAILY PRN 10/18/17 [History] Acetaminophen [Tylenol] 650 mg PO Q4HR PRN tablet 10/21/17 [Rx] Omeprazole [PriLOSEC] 40 mg PO BID #60 cap 10/21/17 [Rx] Ondansetron ODT [Zofran ODT] 4 mg SL Q8HR PRN 11/16/17 [History] Ferrous Sulfate [Iron] 325 mg PO BID #60 tablet 11/21/17 [Rx] levoFLOXacin [Levaquin] 750 mg PO DAILY #7 tablet 11/21/17 [Rx] Allergies/Adverse Reactions: 3 Allergy/AdvReac Type Severity Reaction Status Date / Time Sulfa (Sulfonamide Allergy Hives Verified 11/08/17 10:16 Antibiotics) Date of admission: 11/17/17 16:40 Primary care physician: Barbra Arrieta CNP Consults: 11/17/17 08:35 Consult to Cardiology [CONS] Routine Comment: Consulting Provider: Cardiology Vanessa Reason for Consult: Elevated troponins Call Completed: Yes Discharging clinician: Risa Horner Anticipated date of discharge: 11/21/17 - Patient Status Disposition: Home Health Service Condition: Fair Functional capacity at discharge: wheelchair bound Overall status at discharge: patient is progressing back to baseline - Discharge Instructions Instructions: Sepsis (DC) Follow Up With: Barbra Arrieta CNP [Primary Care Provider] - (in 1-2 weeks) - Diet and Activity Activity: increase activity as tolerated Diet: low fat, low cholesterol, low salt diet Hospital course: Mr. Gonsalez is a 72 year old male patient with cerebral palsy, COPD presented to the ER with complaints of back pain and fever. He was diagnosed with sepsis from urinary tract infection and was started on treatment with IV antibiotics. He has slowly improved with this treatment plan. His blood cultures were positive for Klebsiella pneumoniae. His urine culture was also positive for the same organism. Patient is chronically anemic and this is likely from nutritional iron deficiency. He had low iron levels and did receive iron replacement therapy intravenously year. He will continue to take ferrous sulfate at home. Repeat blood cultures here have been negative for Klebsiella pneumonia. However one set of 2 blood cultures was positive for staph hominis which is likely contaminant. Repeat blood cultures were again drawn on 11/19/17 and they have been negative so far. Clinically he is stable for discharge home and will complete treatment course for sepsis with levofloxacin. - Time Spent with Patient Total time spent providing and/or coordinating discharge services: Greater than 30 minutes (40 min) - Constitutional Vitals: Temp Pulse Resp BP Pulse Ox 98.4 F 81 15 131/68 98 11/21/17 08:00 11/21/17 07:39 11/21/17 07:39 11/21/17 07:39 11/21/17 07:39 General appearance: Present: cooperative, A&O X 1, pleasant, no acute distress - Respiratory Respiratory exam: Present: CTAB. Absent: accessory muscle use, rales, rhonchi, wheezes - Cardiovascular Cardiovascular exam: Present: RRR, +S1, +S2. Absent: diastolic murmur, gallop, rubs, systolic murmur - GI/Abdominal GI/Abdominal exam: Present: normal bowel sounds, soft, no peritoneal signs. Absent: distended, tenderness
--- NOTE | 2017-11-21 11:39 | Physician Discharge Referral ---
Home Health/Hosp Referral Info Transfer to: Home Health Provider in Charge Post Discharge: PCP - Diagnosis (1) Sepsis Priority: Primary Status: Acute (2) Anemia Priority: Secondary Status: Chronic (3) Cerebral palsy Priority: Secondary Status: Chronic (4) COPD (chronic obstructive pulmonary disease) Priority: Secondary Status: Chronic (5) Elevated troponin Priority: Secondary Status: Acute - Respiratory Orders Smoking Cessation: Smoking cessation has been advised. For more information, call the [place] Tobacco Quit Line at 0-288-EMOJ-NOW. - Diet/Nutrition Diet/Nutrition Orders: Cardiac - Activity Activity Orders: Chair - Services Needed Following services are medically necessary services: Nursing, Home Health Aide, Physical Therapy, Occupational Therapy - Transfer Medications Prescriptions: Ferrous Sulfate [Iron] 325 mg PO BID #60 tablet levoFLOXacin [Levaquin] 750 mg PO DAILY #7 tablet Home Medications: Budesonide [Pulmicort] 0.5 mg IH BID PRN 08/03/16 [History] Cyanocobalamin (B-12) [Vitamin B12] 1,000 mcg PO DAILY 08/03/16 [History] HYDROcodone/Acet 5/325 mg [[place] 5-325 mg] 1 tab PO Q6H PRN 08/03/16 [History] HydrOXYzine 10 mg PO TID PRN 08/03/16 [History] Montelukast [Singulair] 10 mg PO DAILY 08/03/16 [History] Nystatin Cream [Mycostatin Cream] 1 appl TP BID PRN 08/03/16 [History] Sertraline [Zoloft] 25 mg PO DAILY 08/03/16 [History] Tamsulosin [Flomax] 0.8 mg PO DAILY #60 capsule 01/05/17 [Rx] Albuterol Sulfate 2.5 mg IH Q4H PRN 09/08/17 [History] Melatonin [Melatin] 3 mg PO HS PRN 09/08/17 [History] Metoprolol XL (24 HR) Succ [Toprol Xl] 50 mg PO DAILY 09/08/17 [History] Multivit-Min/FA/Lycopen/Lutein [Adults 50+ Multivitamin Tablet] 1 each PO DAILY 09/08/17 [History] Ranitidine HCl [Acid Inspector Purchased Parts] 150 mg PO BID 09/08/17 [History] Albuterol Sulfate [Albuterol Inhaler] 2 puff IH Q4HR PRN 10/16/17 [History] Fluticasone Propionate Nasal [Flonase] 1 spr NS DAILY PRN 10/18/17 [History] Acetaminophen [Tylenol] 650 mg PO Q4HR PRN tablet 10/21/17 [Rx] Omeprazole [PriLOSEC] 40 mg PO BID #60 cap 10/21/17 [Rx] Ondansetron ODT [Zofran ODT] 4 mg SL Q8HR PRN 11/16/17 [History] Ferrous Sulfate [Iron] 325 mg PO BID #60 tablet 11/21/17 [Rx] levoFLOXacin [Levaquin] 750 mg PO DAILY #7 tablet 11/21/17 [Rx] Allergies/Adverse Reactions: 3 Allergy/AdvReac Type Severity Reaction Status Date / Time Sulfa (Sulfonamide Allergy Hives Verified 11/08/17 10:16 Antibiotics) Certification: Further, I certify that my clinical findings support that this patient is homebound (i.e. absences from home require considerable and taxing effort and are for medical reasons or caodaism services or infrequently or short duration when for other reasons) because: Homebound Reason: Patient requires assistance of a person or device to safely leave home Attestation: My signature below is to certify that this patient is under my care and that I, or nurse practitioner, or a physician's after school program assistant working with me, has a face-to -face encounter with this patient.
== END 2017-11-21 13:00 | disposition home health service (06) | DRG 872 ==
LOC: 2NENU 15:29 → INTOOBSV 15:29 → SUATTDRO 15:29
PROVIDERS: ADMIT Internal Medicine; ATTEND Internal Medicine